=== PATIENT | female | born 1935 | race Caucasian/White ===

== ENCOUNTER 2016-09-24 20:47 | Emergency (ER) | payer MEDICARE ==
[2016-09-24 21:21] VITALS: BP 147/70
[2016-09-24] MEDS ORDERED: Acyclovir CAP* 200 MG PO ONE (22:31)
[2016-09-24] MEDS ORDERED: Tobramycin 0.3% OPHTH.SOL* 5 ML BOT (regular eye drops) RIGHT EYE ONE (22:33)
--- NOTE | 2016-10-04 09:11 | UC ---
Ramses Guzman Erika, scribed for Nicole Patrick DO on 09/24/16 at 2216 . Skin Complaint HPI - HPI Summary HPI Summary: Patient is an 81-year-old female presenting to [facility] with a CC of rash. Patient reports she has a dorsal root block scheduled for 09/28/2016, but will have to postpone the procedure if she has shingles so came here for evaluation. Rash is on the right side of the upper back, and it is pruritic. She does not note pain , but states she is taking hydrocodone and uses a fentanyl patch for her chronic neck pain. Patient also c/o blurred vision in the right eye. Patient reports that the eye began watering last night. She notes soreness rated a 3/10, and states photophobia. She denies fever, chills, nausea, vomiting, sore throat, ear ache, and headache. Hx right artificial cornea - patient reports she always has blurred vision, but it has significantly worsened in the past day. 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 FHx CAD, DM, HTN. Patient does not smoke. - History of Current Complaint Chief Complaint: UCRas Time Seen by Provider: 09/24/16 21:56 Stated Complaint: RASH ON SHOULDER,EYE IRRITATION Hx Obtained From: Patient, Family/Mold Worker - Daughter Onset/Duration: Lasting Days, Still Present Timing: Constant Onset Severity: Moderate Current Severity: Moderate Pain Intensity: 0 - rash Pain Scale Used: 0-10 Numeric Location: Discrete, Other - right back Character: Pruritus, Pain, Redness Aggravating: Nothing Alleviating: Nothing Associated Signs & Symptoms: Positive: Rash. Negative: Nausea, Vomiting, Diaphoresis, Difficulty Breathing, Fever, Chills, Cough, Chest Pain, Hoarseness , Throat Tightening, Abdominal Pain, Lightheadedness, Syncope - Allergy/Home Medications Allergies/Adverse Reactions: Allergies Allergy/AdvReac Type Severity Reaction Status Date / Time Ropinirole [From Requip] Allergy RASH, NOT Verified 09/09/16 10:19 SURE, MANY YRS AGO enviromental Allergy Mild Sneezing Uncoded 09/09/16 10:19 Review of Systems Constitutional: Negative Skin: Rash Eyes: Blurred Vision - R eye, Drainage - R eye, Photophobia - R eye ENT: Negative Respiratory: Negative Cardiovascular: Negative Gastrointestinal: Negative Genitourinary: Negative Motor: Negative Neurovascular: Negative Musculoskeletal: Negative Neurological: Negative Psychological: Negative All Other Systems Reviewed And Are Negative: Yes PMH/Surg Hx/FS Hx/Imm Hx Endocrine History Of: Denies: Diabetes Cardiovascular History Of: Denies: Hypertension, Pacemaker/ICD, Congestive Heart Failure Respiratory History Of: Reports: Asthma GI/ History Of: Denies: Renal Disease Cancer History Of: Denies: Breast Cancer - Surgical History Surgical History: Yes Surgery Procedure, Year, and Place: LT SHOULDER ROTATOR CUFF REPAIR, LT HIP REPLACEMENT, COMPLETE HYSTERECTOMY, APPY, 5 CORNEA TRANSPLANTS - Family History Known Family History: Positive: Cardiac Disease, Hypertension, Diabetes - Social History Occupation: Retired Alcohol Use: None Substance Use Type: None Smoking Status (MU): Never Smoked Tobacco Physical Exam Triage Information Reviewed: Yes Appearance: Well-Appearing, Well-Nourished, Pain Distress - Mild Vital Signs: Initial Vital Signs Temp 99.2 F 09/24/16 21:12 Pulse 73 09/24/16 21:12 Resp 18 09/24/16 21:12 BP 147/70 09/24/16 21:12 Pulse Ox 95 09/24/16 21:12 Vital Signs Reviewed: Yes Eyes: Positive: Other: - right eye is watery, conjunctival injection, cornea is clear, patient's pupil is abnormal at baseline due to "Crane procedure" on cornea. Patient's pupil and iris are abnormal at baseline. Per patient's daughter, though the eye is red, the iris and pupil look normal for patient. No ophthalmoplegia, no swelling of the eyeball ENT: Positive: Hearing grossly normal. Negative: Muffled/hoarse voice Neck: Positive: Other: - wearing a C collar Respiratory: Positive: Lungs clear, Normal breath sounds, No respiratory distress, No accessory muscle use Cardiovascular: Positive: RRR, No Murmur Musculoskeletal Exam: Normal Neurological: Positive: Alert, Muscle Tone Normal Psychological Exam: Normal Psychological: Positive: Age Appropriate Behavior Skin Exam: Other - warm, dry, normal color Skin: Positive: Other - excoriated lesions in a band-like distribution on the right side of the thoracic region, pruritic per patient Course/Dx - Differential Diagnoses - Skin Complaint Differential Diagnoses: Contact Dermatitis, Local Allergic Reaction, Scabies, Urticaria, Varicella Zoster - Diagnoses Provider Diagnoses: shingles, conjunctivitis Discharge - Discharge Plan Condition: Stable Disposition: HOME Prescriptions: ValACYclovir (*) [Valtrex (*)] 1 gm PO TID #20 tab Patient Education Materials: Shingles (ED), Conjunctivitis (ED) Referrals: Gabriele Mcgee MD [Primary Care Provider] - (FOLLOW UP 09/27/16) Kwasi Dos Santos MD [Medical Doctor] - (FOLLOW UP TOMORROW) Additional Instructions: VALTREX: VALTREX is used to treat infections caused by the Herpes family of viruses. It's available as capsules or ointment. VALTREX is most effective if started at the first sign of the viral outbreak. It can decrease the severity and duration of symptoms. However, it doesn't eliminate the virus from the body completely. If you're prone to repeated outbreaks of herpes, you'll continue to have attacks. Take the pills for the full recommended course. Occasionally, mild nausea or headaches may occur. Call the doctor if you develop wheezing, itching, rash, shortness of breath , or lightheadedness. The documentation as recorded by the Ramses wray Erika accurately reflects the service I personally performed and the decisions made by me, Nicole Patrick DO.
== END 2016-09-24 23:00 | disposition home or self-care (01) ==
LOC: UCEAST 20:47
DX: B02.9 Zoster without complications (principal); H10.9 Unspecified conjunctivitis
CPT/HCPCS: 99213; A9270-GY; G0463

== ENCOUNTER 2016-10-19 12:58 | Emergency (ER) | payer MEDICARE ==
[2016-10-19] MEDS ORDERED: NS 0.9% 1000 ML* 1,000 ML IV ONE ×2 (14:26→15:54)
[2016-10-19] MEDS ORDERED: Ondansetron INJ* 2 MG/ML VIAL IV ONE (14:26)
[2016-10-19 14:46] LABS: Hematocrit 43 % (35-47); Hemoglobin 13.9 g/dl (12.0-16.0); Mean Corpuscular HGB Conc 32 g/dl (31-36); Mean Corpuscular Hemoglobin 32 pg (27-31); Mean Corpuscular Volume 98 fL (80-97); Mean Platelet Volume 7 um3 (7.4-10.4); Red Blood Count 4.37 10^6/ul (4.0-5.4); Red Cell Distribution Width 14 % (10.5-15); White Blood Count 6.3 10^3/ul (3.5-10.8)
[2016-10-19 15:01] LABS: ALT 7 U/L (7-52); Alkaline Phosphatase 55 U/L (34-104); BUN/Creatinine Ratio 34.5 (8-20); Blood Urea Nitrogen 29 mg/dL (6-24); CO2 Carbon Dioxide 26 mmol/L (22-32); Calcium 8.9 mg/dL (8.6-10.3); Chloride 108 mmol/L (101-111); EGFR African American 83.7 (>60); EGFR Non-African American 65.1 (>60); Globulin 3.2 g/dL (2-4); Glucose 138 mg/dL (70-100); Magnesium 2.3 mg/dL (1.9-2.7); Sodium 139 mmol/L (133-145); Total Protein 7.2 g/dL (6.4-8.9)
[2016-10-19 15:20] LABS: TSH (Thyroid Stimulating Horm) 1.75 mcIU/mL (0.34-5.60)
[2016-10-19 15:27] LABS: AST 16 U/L (13-39); Anion Gap 5 mmol/L (2-11); Potassium 3.8 mmol/L (3.5-5.0)
[2016-10-19 19:21] VITALS: BP 118/90
[2016-10-20 13:19] LABS: Erythrocyte Sed Rate 10 mm/Hr (0-40)
[2016-10-20 13:47] LABS: C Reactive Protein < 1.00 mg/L (< 5.00)
--- NOTE | 2016-10-20 14:22 | ED ---
Lawrence Guzman Matthew, scribed for Donavon Rivas MD on 10/19/16 at 1544 . Complex/Multi-Sys Presentation - HPI Summary HPI Summary: An 81 y/o female presents to the ED with general weakness since 2 weeks ago. Associated symptoms include nausea, decreased appetite, recent weight loss, and fatigue. The patient's daughter called family medicine who recommended the patient present to the ED. She's only eating a small meal per day. Hx of shingles and a cyst in C1 and C2. She is taking hydrocodone and fentanyl patches. - History Of Current Complaint Chief Complaint: EDWeakness Time Seen by Provider: 10/19/16 13:51 Hx Obtained From: Patient Onset/Duration: Gradual Onset, Lasting Weeks, Still Present Timing: Constant Severity Currently: Moderate Severity Initially: Moderate Location: Negative Associated Signs And Symptoms: Positive: Weakness - general, Nausea, Decreased Oral Intake, Other - weight loss; fatigue - Allergies/Home Medications Allergies/Adverse Reactions: Allergies Allergy/AdvReac Type Severity Reaction Status Date / Time Ropinirole [From Requip] Allergy RASH, NOT Verified 09/09/16 10:19 SURE, MANY YRS AGO enviromental Allergy Mild Sneezing Uncoded 09/09/16 10:19 PMH/Surg Hx/FS Hx/Imm Hx Endocrine/Hematology History: Denies: Hx Diabetes, Hx Systemic Lupus Erythematosus Cardiovascular History: Denies: Hx Congestive Heart Failure, Hx Hypertension, Hx Pacemaker/ICD Respiratory History: Reports: Hx Asthma History: Denies: Hx Dialysis, Hx Renal Disease Musculoskeletal History: Denies: Hx Rheumatoid Arthritis Sensory History: Denies: Hx Hearing Aid Neurological History: Reports: Other Neuro Impairments/Disorders - PAIN CLINIC PATIENT Psychiatric History: Denies: Hx Panic Disorder - Cancer History Hx Chemotherapy: No Hx Radiation Therapy: No - Surgical History Surgery Procedure, Year, and Place: LT SHOULDER ROTATOR CUFF REPAIR, LT HIP REPLACEMENT, COMPLETE HYSTERECTOMY, APPY, 5 CORNEA TRANSPLANTS Infectious Disease History: Denies: History Other Infectious Disease, Traveled Outside the [place] in Last 30 Days - Family History Known Family History: Positive: Cardiac Disease, Hypertension, Diabetes, Other - NONCONTIBUTORY - Social History Alcohol Use: None Substance Use Type: Reports: None Smoking Status (MU): Never Smoked Tobacco Review of Systems Constitutional: Other - decreased appetite, recent weight loss Positive: Fatigue Eyes: Negative ENT: Negative Cardiovascular: Negative Respiratory: Negative Positive: Nausea Genitourinary: Negative Musculoskeletal: Negative Skin: Negative Positive: Weakness - general Psychological: Normal All Other Systems Reviewed And Are Negative: Yes Physical Exam Triage Information Reviewed: Yes Vital Signs On Initial Exam: Initial Vitals Temp Pulse Resp BP Pulse Ox 97.9 F 73 18 143/66 98 10/19/16 13:01 10/19/16 13:01 10/19/16 13:01 10/19/16 13:01 10/19/16 13:01 Vital Signs Reviewed: Yes Appearance: Positive: Pain Distress - mild Skin: Positive: Other - tense skin Head/Face: Positive: Normal Head/Face Inspection Eyes: Positive: Normal ENT: Positive: Other - Dry mucous membranes Neck: Positive: Supple, Nontender Respiratory/Lung Sounds: Positive: Clear to Auscultation, Breath Sounds Present Cardiovascular: Positive: RRR Abdomen Description: Positive: Nontender, Soft Bowel Sounds: Positive: Present Musculoskeletal: Positive: Strength/ROM Intact Neurological: Positive: Alert, Oriented to Person Place, Time Psychiatric: Positive: Affect/Mood Appropriate - [place] Coma Scale Coma Scale Total: 15 Diagnostics - Vital Signs Vital Signs Temp Pulse Resp BP Pulse Ox 10/19/16 14:08 97.9 F 67 20 136/58 92 10/19/16 13:01 97.9 F 73 18 143/66 98 - Laboratory Lab Results: Lab Results 10/19/16 10/19/16 10/19/16 Range/Units 14:35 14:35 14:35 WBC 6.3 (3.5-10.8) 10^3/ul RBC 4.37 (4.0-5.4) 10^6/ul Hgb 13.9 (12.0-16.0) g/dl Hct 43 (35-47) % MCV 98 H (80-97) fL MCH 32 H (27-31) pg MCHC 32 (31-36) g/dl RDW 14 (10.5-15) % Plt Count 453 H (150-450) 10^3/ul MPV 7 L (7.4-10.4) um3 Neut % (Auto) 53.9 (38-83) % Lymph % (Auto) 33.6 (25-47) % Cameron % (Auto) 9.6 H (1-9) % Eos % (Auto) 1.7 (0-6) % Baso % (Auto) 1.2 (0-2) % Absolute Neuts (auto) 3.4 (1.5-7.7) 10^3/ul Absolute Lymphs (auto) 2.1 (1.0-4.8) 10^3/ul Absolute Monos (auto) 0.6 (0-0.8) 10^3/ul Absolute Eos (auto) 0.1 (0-0.6) 10^3/ul Absolute Basos (auto) 0.1 (0-0.2) 10^3/ul Absolute Nucleated RBC 0.01 10^3/ul Nucleated RBC % 0.1 Sodium 139 (133-145) mmol/L Potassium 3.8 (3.5-5.0) mmol/L Chloride 108 (101-111) mmol/L Carbon Dioxide 26 (22-32) mmol/L Anion Gap 5 (2-11) mmol/L BUN 29 H (6-24) mg/dL Creatinine 0.84 (0.51-0.95) mg/dL Est GFR ( Amer) 83.7 (>60) Est GFR (Non-Af Amer) 65.1 (>60) BUN/Creatinine Ratio 34.5 H (8-20) Glucose 138 H (70-100) mg/dL Lactic Acid 1.6 (0.5-2.0) mmol/L Calcium 8.9 (8.6-10.3) mg/dL Magnesium 2.3 (1.9-2.7) mg/dL Total Bilirubin 0.30 (0.2-1.0) mg/dL AST 16 (13-39) U/L ALT 7 (7-52) U/L Alkaline Phosphatase 55 (34-104) U/L Troponin I 0.00 (<0.04) ng/mL Total Protein 7.2 (6.4-8.9) g/dL Albumin 4.0 (3.2-5.2) g/dL Globulin 3.2 (2-4) g/dL Albumin/Globulin Ratio 1.3 (1-3) TSH 1.75 (0.34-5.60) mcIU/mL Result Diagrams: 10/19/16 14:35 10/19/16 14:35 Lab Statement: Any lab studies that have been ordered have been reviewed, and results considered in the medical decision making process. - EKG 13:08 Cardiac Rate: NL - 66 bpm EKG Rhythm: Sinus Rhythm EKG Interpretation: No STEMI Complex Multi-Symp Course/Dx Course Of Treatment: Ms Mina has been having a rough time of it recently. She has been having problems with her right eye and underwent surgery recently which helped some but she has had a lot of pain in the eye and on the right side of her head. Tegretol has been started a week or so ago at 200mg BID. She is also on a narcotic for neck pain for which she is scheduled to have injections. Because of the pain, she has been nauseated and not eating or drinking well.Her W/U here was OK and she improved a lot with IV fluids and she and her daughter were willing to try increasing her tegretol to 300 BID and going home. - Diagnoses Provider Diagnoses: Chronic pain, Dehydration Discharge - Discharge Plan Condition: Stable Disposition: HOME Patient Education Materials: Dehydration (ED) Referrals: Gabriele Mcgee MD [Primary Care Provider] - Additional Instructions: Please increase dosage of Tegretol to 300mg twice daily. Please follow-up with your primary care physician in 2-3 days. The documentation as recorded by the Lawrence wray Matthew accurately reflects the service I personally performed and the decisions made by me, Donavon Rivas MD.
== END 2016-10-19 19:22 | disposition home or self-care (01) ==
LOC: ED 12:58
DX: E86.0 Dehydration (principal); G89.29 Other chronic pain; R53.1 Weakness; R11.0 Nausea; R53.83 Other fatigue
CPT/HCPCS: 36415; 80053; 83605; 83735; 84443; 84484; 85025; 85652; 86140; 93005; 96374; 99283; J2405

== ENCOUNTER 2016-10-25 11:43 | Observation (INO) | payer MEDICARE ==
[2016-10-25] MEDS ORDERED: Acetaminophen TAB* 325 MG PO PRN (12:31)
[2016-10-25] MEDS ORDERED: Morphine INJ* 2 MG/ML 1 ML SYRINGE IV PRN (12:31)
[2016-10-25] MEDS ORDERED: Ondansetron INJ* 2 MG/ML VIAL IV PRN (12:31)
[2016-10-25 13:11] LABS: Hematocrit 41 % (35-47); Hemoglobin 13.5 g/dl (12.0-16.0); Mean Corpuscular HGB Conc 33 g/dl (31-36); Mean Corpuscular Hemoglobin 32 pg (27-31); Mean Corpuscular Volume 97 fL (80-97); Mean Platelet Volume 8 um3 (7.4-10.4); Red Blood Count 4.22 10^6/ul (4.0-5.4); Red Cell Distribution Width 14 % (10.5-15); White Blood Count 9.2 10^3/ul (3.5-10.8)
[2016-10-25 13:27] LABS: Albumin 3.9 g/dL (3.2-5.2); BUN/Creatinine Ratio 33.7 (8-20); EGFR African American 84.9 (>60); Globulin 3.1 g/dL (2-4); Potassium 3.5 mmol/L (3.5-5.0); Total Bilirubin 0.3 mg/dL (0.2-1.0)
[2016-10-25] MEDS ORDERED: fentaNYL PATCH 12 MCG/HR TRANSDERM SCH (14:00)
[2016-10-25] MEDS: NS 0.9% 1000 ML* 1,000 ML IV SCH ×2 (14:16→22:09)
[2016-10-25] MEDS: Heparin VIAL(*) 5000 UNITS/ML VIAL (FIVE THOUSAND) SUBCUT SCH ×2 (15:50→22:12)
[2016-10-25] MEDS: HYDROcodone/ACETAMIN 5-325 MG* 1 TAB PO SCH ×2 (15:55→22:23)
[2016-10-25] MEDS: Sucralfate TAB* 1 GM PO SCH (17:15)
[2016-10-25] MEDS: OFLOXACIN 0.3% RIGHT EYE SCH ×2 (17:16→22:10)
[2016-10-25 19:46] LABS: Carbamazepine 5.9 mcg/mL (4.0-12.0)
--- NOTE | 2016-10-25 20:12 | PN ---
Progress Note - Progress Note Note: Called by patient's RN that patient reported floaters in her right eye that were new. She states that these started today and are very large, "like a spaceship." She denies pain to the eye or other complaint. Patient's daughter had spoken with in [place] who follows her for her ongoing complex R eye complaints to cancel a previously scheduled appointment for tomorrow and reported to him these new floaters. MD asked that patient be seen tonight by opthamologist as he is worried about retinal detachment. Spoke with Dr. Soto who will exam patient tonight.
[2016-10-25] MEDS ORDERED: Latanoprost 0.005%* 2.5 ml BTL RIGHT EYE SCH (21:00)
--- NOTE | 2016-10-25 21:43 | PN ---
Progress Note - Progress Note Note: Ophthalmology progress note CC: spots in right eye HPI: 81yo female with complex medical and ocular hx currently admitted for deterioration in health and ftt. she noticed flashes of light and spots in her vision today. 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 daughter reports her pain is actually improved today. 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 ppv recently for vitreous haze and tap and inject 10/15/16 od. VA: od 20/200 cc. os 20/50 cc iop: soft TP ou pupils: fixed od, reactive os. eoms: full ou anterior segment: LL wnl ou. conj with limbal flush od, w/q os. bcl od with boston k pro. pkp os. cataract os. fundus exam od: macula flat, nerve sharp, mild pallor, shallow cup. peripheral exam: retina flat to best view through k-pro with 28D lens. few vitreous floaters but grossly clear od. A/P: 1: floaters right eye: -stable retinal exam. I spoke with Dr. Cox and her daughter. her vision is improved from previous and her pain too is improved. her recent surgeries does place her at increased risk for retinal pathology but there are no apparent retinal tear/detachment today. her daughter reports a follow up ophthalmology appointment on 11/03/16. She should keep this appointment. please call if there are any further changes in her vision 2: enophthalmitis right eye -exam improving based on chart review and with discussion with Dr. Cox. -plan to continue current eye drops -follow up: as scheduled for her out patient appointments. -ophthalmology will sign off. please call for any future questions. Taj Soto MD
--- NOTE | 2016-10-25 22:00 | HP ---
HISTORY AND PHYSICAL:* ADDENDUM: DATE OF ADMISSION: 10/25/16 Josefa Mina is an 81-year-old female with history of and chronic neck osteoarthritis who had had problems with her eye in the past several days and had problems with constant nausea and inability to eat. Dr. Mcgee sent the patient from his office for drugs administration for dehydration. The patient is going to be placed on overnight observation. We will also review the patient 's medication list. Treat her for possibility of gastritis with proton pump inhibitor and Carafate. For further details of the patient's presentation and plan, please see history and physical dictated by Sania Bey, on 10/25/16 with which I agree. [id number]/[facility] #: [id number] MTDD
[2016-10-25] MEDS: VANCOMYCIN RIGHT EYE SCH (22:06)
[2016-10-25] MEDS: ACETAZOLAMIDE 500 MG PO SCH (22:27)
[2016-10-25] MEDS: Timolol 0.5% OPTH.SOL* BTL RIGHT EYE SCH (22:29)
[2016-10-25] MEDS: prednisoLONE 1% OPHTH.SUSP* 5 ML OPHTH.SUSP RIGHT EYE SCH (22:31)
[2016-10-25] MEDS: Nabumetone TAB* 500 MG PO SCH (22:33)
[2016-10-25] MEDS: carBAMazepine TAB(*) 200 MG PO SCH (22:34)
--- NOTE | 2016-10-25 22:51 | HP ---
ATTENDING PHYSICIAN'S ADDENDUM NOW INCLUDED ON THIS REPORT HOSPITAL MEDICINE HISTORY AND PHYSICAL: DATE OF ADMISSION: 10/25/16 PRIMARY CARE PHYSICIAN: Dr. Mcgee. ATTENDING PHYSICIAN: Anna Harper MD *(dictation provided by Sania Bey NP). CHIEF COMPLAINT: Nausea, weakness and poor appetite with intermittent right eye and neck pain. HISTORY OF PRESENT ILLNESS: Ms. Mina is an 81-year-old female with a past medical history of osteoarthritis, neck pain secondary to degenerative disease and recent right eye hemorrhage and infection, treated at [facility], who presents to the hospital today with concern for nausea, poor appetite and generalized weakness. Ms. Mina's daughter is at the bedside and she provides most of the history of present illness but this is all corroborated by the patient as well. Per the report, the patient developed neck pain late in the fall after a fall at home. She was seen in consultation by Dr. Umanzor here in [place] and ultimately it is suspected that her symptoms are related to degenerative disease with plan for dorsal root injection in [place] at the pain clinic there. However, the patient developed shingles and thereafter she had a hemorrhage to her right eye. She has been followed closely in [place] by Dr. Cox and his team for ongoing problems with her right eye. She has had severe intermittent pain. She had evacuation of hemorrhage and then there was concern that she had keratitis, vitritis and endophthalmitis. Her last visit there was on 10/19/16. There was no evidence of infection at that time. She has been placed on Tegretol for pain in the eye and Diamox as well. At least as of today , the patient has no further pain in her right eye. She had had some loss of vision and she feels that her vision is returning as well. In addition to this ongoing issue with pain in her eye since [facility], the patient has had this ongoing neck pain since the fall. Now that her eye pain is better, she feels that the neck pain is quite intense. She is also now complaining of nausea which is causing her to have a very poor appetite. The patient's daughter reports that she is eating about one meal per day. After she eats, she has nausea. There is no abdominal pain. She has had diarrhea the past couple of days but no more than 4 to 5 episodes. There is no vomiting, no abdominal pain. The patient was seen in the emergency room on 10/19/16 for concern of generalized weakness, nausea and poor appetite. At that time, she was given IV fluids and felt better. However, in the intervening days, she has again felt weak and nauseated and continues to have poor appetite. She saw Dr. Mcgee at his office today and he was concerned that she was significantly dehydrated and therefore had her sent to the hospital. The patient's labs today showed no leukocytosis. Her BUN and creatinine are normal. Electrolytes are normal. Vital signs are stable. PAST MEDICAL HISTORY: 1. Osteoarthritis. 2. Asthma. 3. Cervical degenerative disk disease with plan for dorsal root injection in [place] when the patient is stable. 4. History of right eye pain with hemorrhage and possible endophthalmitis. 5. History of hip replacement. 6. History of rotator cuff injury. MEDICATIONS: 1. Acetazolamide 500 mg p.o. b.i.d. 2. Estradiol 0.3 mg p.o. daily. 3. Hydrocodone and acetaminophen 5/325 mg 1 tab p.o. q. 8 hours. 4. Latanoprost 0.005% one drop right eye at bedtime. 5. Nabumetone 500 mg p.o. b.i.d. 6. Ofloxacin 0.3% two drops right eye q.i.d. 7. Timolol 0.5% one drop right eye b.i.d. 8. Fentanyl patch 12 mcg q. 72 hours. 9. Prednisolone 1% one drop right eye b.i.d. 10. Tegretol 300 mg p.o. b.i.d. 11. Vancomycin eye drops. ALLERGIES: ROPINIROLE. FAMILY HISTORY: The patient's mother with stroke and diabetes. Father also had diabetes but related to a brain infection. REVIEW OF SYSTEMS: A 14-point review of systems was completed with Ms. Mina and all those mentioned above are negative. PHYSICAL EXAMINATION GENERAL: Ms. Mina is sitting up in the bed. She has eaten her lunch and is now beginning to complain of some nausea and she is in no acute distress. VITAL SIGNS: Temperature of 97.3, pulse rate 64, respiratory rate 18, O2 saturation 100% on room air. Blood pressure 147/72. LUNGS: Clear to auscultation bilaterally with no accessory muscle use and good aeration. HEART: S1, S2. No murmur, rub or gallop. ABDOMEN: Soft and nontender with bowel sounds are positive x4. EXTREMITIES: No cyanosis or edema. SKIN: Intact. NEUROLOGIC: She is alert, she is oriented x3. She moves all extremities equally. There is no facial asymmetry or focal weakness. Note is made that the patient has a KPro in her right eye as well as keratoconus as noted in the documentation from Dr. Cox's office. Left eye, pupil is equal and reactive. LABORATORY DATA: WBC 9.2, hemoglobin 13.5, hematocrit 41, platelet count of 286. Sodium 138, potassium 3.5, chloride 108, serum bicarbonate 23, BUN 28, creatinine 0.83, glucose 105. ASSESSMENT: Ms. Mina is an 81-year-old female who has been feeling unwell for the past several months related to degenerative disk disease in her neck, causing severe neck pain as well as episode of shingles and now ongoing problems with right eye hemorrhage and infection since . She presents to the hospital today from Dr. Mcgee's office with concern for generalized weakness and nausea and poor appetite. Her plans are for observation in the hospital for the followin. Nausea. It appears the patient's main complaint today is nausea. She states her eye pain is resolved and that her neck pain feels reasonably controlled up to this point on hydrocodone and fentanyl. I question whether the nausea is related to medications. She is on Diamox which can cause nausea as well as Tegretol. I also wonder if perhaps she has stress ulcerations after this prolonged illness and pain and plan to add omeprazole and sucralfate as well as Zofran p.r.n. The patient is not overtly dehydrated based on laboratory values but plan to provide intravenous fluids based on her poor appetite. 2. Right eye pain with endophthalmitis. Plan to continue all medications as prescribed by Dr. Cox. The patient will be following up with Dr. Cox per routine. 3. Neck pain. Plan to continue current regimen and add on as needed. At this point, she is comfortable. 4. DVT prophylaxis with heparin subcu. DISPOSITION: Medical floor. CODE STATUS: Full code. TIME SPENT: Approximately 60 minutes was spent on admission of this patient; more than half the time was spent with the patient at the bedside reviewing the events leading up to this hospitalization, performing physical examination, and reviewing our plan of care. SANIA BEY NP ADDENDUM: DATE OF ADMISSION: 10/25/16 Josefa Mina is an 81-year-old female with history of and chronic neck osteoarthritis who had had problems with her eye in the past several days and had problems with constant nausea and inability to eat. Dr. Mcgee sent the patient from his office for drugs administration for dehydration. The patient is going to be placed on overnight observation. We will also review the patient 's medication list. Treat her for possibility of gastritis with proton pump inhibitor and Carafate. For further details of the patient's presentation and plan, please see history and physical dictated by Sania Bey, on 10/25/16 with which I agree. ANNA HARPER MD CC: Dr. Mcgee* [id number]/[facility] #: [id number] [id number]/[facility] #: [id number] JOEL
[2016-10-26] MEDS ORDERED: Omeprazole CAP* 20 MG PO SCH (06:00)
[2016-10-26] MEDS: NS 0.9% 1000 ML* 1,000 ML IV SCH (06:01)
[2016-10-26] MEDS: HYDROcodone/ACETAMIN 5-325 MG* 1 TAB PO SCH (06:02)
[2016-10-26] MEDS: Heparin VIAL(*) 5000 UNITS/ML VIAL (FIVE THOUSAND) SUBCUT SCH (06:03)
[2016-10-26 07:46] VITALS: BP 109/48
[2016-10-26] MEDS: Sucralfate TAB* 1 GM PO SCH (07:56)
[2016-10-26] MEDS ORDERED: ESTRADIOL 0.5 MG PO SCH (09:00)
--- NOTE | 2016-10-26 09:53 | PN ---
Subjective Date of Service: 10/26/16 Interval History: Patient seen and examined at bedside. She does not endorse any new complaints. She denies any new floaters or flashes of light. She feels better after receiving fluids and was able to eat her breakfast this AM. Family History: Unchanged from Admission Social History: Unchanged from Admission Past Medical History: Unchanged from Admission Objective Active Medications: Acetaminophen (Tylenol Tab*) 650 mg PO Q4H PRN PRN Reason: FEVER/PAIN Hydrocodone Bitart/Acetaminophen (Frank[place] 5-325 Tab*) 1 tab PO Q8HR [facility] Last Admin: 10/26/16 06:02 Dose: 1 tab Carbamazepine (Tegretol Tab(*)) 300 mg PO BID [facility] Last Admin: 10/25/16 22:34 Dose: 400 mg Estradiol (Estradiol (Nf)) 0.5 mg PO DAILY [facility] Fentanyl (Duragesic Patch 12 Mcg/Hr *) 12 mcg TRANSDERM Q72H [facility] Last Admin: 10/25/16 15:50 Dose: 12 mcg Heparin Sodium (Porcine) (Heparin Vial(*)) 5,000 units SUBCUT Q8HR [facility] Last Admin: 10/26/16 06:03 Dose: 5,000 units Sodium Chloride (Ns 0.9% 1000 Ml*) 1,000 mls @ 125 mls/hr IV PER RATE [facility] Last Admin: 10/26/16 06:01 Dose: 125 mls/hr Latanoprost (Xalatan 0.005%*) 1 drop RIGHT EYE BEDTIME [facility] Last Admin: 10/25/16 22:21 Dose: 1 drop Morphine Sulfate (Morphine Inj (Syringe)*) 2 mg IV Q4H PRN PRN Reason: PAIN Nabumetone (Relafen Tab*) 500 mg PO BID [facility] Last Admin: 10/25/16 22:33 Dose: 500 mg Pto: Acetazolamide (Er 500 Mg Cap) 1 cap PO BID [facility] Last Admin: 10/25/16 22:27 Dose: 1 cap Pto: Vancomycin (Fortified Eye Drops) 1 dose RIGHT EYE BID [facility] Last Admin: 10/25/16 22:06 Dose: 1 dose Ofloxacin (Ocuflox Opth 0.3%(Nf)) 1 drop RIGHT EYE QID [facility] Last Admin: 10/25/16 22:10 Dose: 1 drop Omeprazole (Prilosec Cap*) 20 mg PO 0600 [facility] Last Admin: 10/26/16 06:02 Dose: 20 mg Ondansetron HCl (Zofran Inj*) 4 mg IV Q4H PRN PRN Reason: NAUSEA/VOMITING Prednisolone Acetate (Pred Forte 1%*) 1 drop RIGHT EYE BID [facility] Last Admin: 10/25/16 22:31 Dose: 1 drop Sucralfate (Carafate*) 1 gm PO AC [facility] Last Admin: 10/26/16 07:56 Dose: 1 gm Timolol Maleate (Timoptic 0.5% Opth*) 1 drop RIGHT EYE BID [facility] Last Admin: 10/25/16 22:29 Dose: 1 drop Vital Signs 10/25/16 10/25/16 10/25/16 12:28 15:50 15:55 Temperature 97.3 F Pulse Rate 64 Respiratory 18 16 16 Rate Blood Pressure 147/72 (mmHg) O2 Sat by Pulse 100 Oximetry 10/25/16 10/25/16 10/25/16 17:55 19:38 20:00 Temperature 98.0 F Pulse Rate 56 Respiratory 16 16 16 Rate Blood Pressure 119/48 (mmHg) O2 Sat by Pulse 97 Oximetry 10/25/16 10/25/16 10/26/16 22:23 23:23 00:23 Temperature 97.7 F Pulse Rate 56 Respiratory 20 16 16 Rate Blood Pressure 137/61 (mmHg) O2 Sat by Pulse 97 Oximetry 10/26/16 10/26/16 10/26/16 03:41 06:02 07:45 Temperature 97.9 F 97.9 F Pulse Rate 63 57 Respiratory 16 16 14 Rate Blood Pressure 113/64 109/48 (mmHg) O2 Sat by Pulse 95 96 Oximetry Oxygen Devices in Use Now: None Appearance: Elderly female, sitting on edge of bed, NAD Eyes: No Scleral Icterus, - - left eye pupil is reactive, Kpro and 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 Mina is an 81 yo female with a PMH of cervical DDD, OA, asthma, right eye pain with hemorrhage and possible endophthalmitis who presented to the ED on 10/25/16 with nausea as well as intermittent neck pain and right eye pain and complications. - Patient Problems (1) Nausea Code(s): R11.0 - NAUSEA Comment: Patient reports improvement in nausea and symptoms with hydration. Able to tolerate PO intake. Discussed the possibility of gastritis with patient. She does not wish to continue on omeprazole or sucralfate at this time. Has not required ondansetron. Continue outpatient f/u with PCP. (2) Pain of right eye Code(s): H57.11 - OCULAR PAIN, RIGHT EYE Comment: With endophthalmitis. Appreciate ophthalmology consult. No retinal detachment or tears noted. Continue eye gtts Continue outpatient f/u with Dr. Cox. (3) Degenerative disc disease, cervical Code(s): M50.30 - OTHER CERVICAL DISC DEGENERATION, UNSP CERVICAL REGION Comment: Stable, no increased pain. Patient wearing cervical collar. Outpatient follow-up in [place] as previously scheduled. (4) DVT prophylaxis Code(s): [id number] - Comment: SQ heparin Status and Disposition: OBV admit. D/c to home.
[2016-10-26] MEDS: carBAMazepine TAB(*) 200 MG PO SCH (09:55)
[2016-10-26] MEDS: ACETAZOLAMIDE 500 MG PO SCH (09:55)
[2016-10-26] MEDS: prednisoLONE 1% OPHTH.SUSP* 5 ML OPHTH.SUSP RIGHT EYE SCH (09:56)
[2016-10-26] MEDS: Nabumetone TAB* 500 MG PO SCH (09:56)
[2016-10-26] MEDS: Timolol 0.5% OPTH.SOL* BTL RIGHT EYE SCH (09:57)
[2016-10-26] MEDS: OFLOXACIN 0.3% RIGHT EYE SCH (09:57)
[2016-10-26] MEDS: VANCOMYCIN RIGHT EYE SCH (10:09)
--- NOTE | 2016-10-27 06:45 | DS ---
MEDICINE DISCHARGE SUMMARY: DATE OF ADMISSION: 10/25/16 DATE OF DISCHARGE: 10/26/16 PRIMARY CARE PROVIDER: Dr. Gabriele Mcgee. PROVIDER: Ondina Beatty NP ATTENDING PHYSICIAN: Dr. Neo Saunders *(as dictated by Ondina Beatty NP). PRIMARY DISCHARGE DIAGNOSES: 1. Nausea. 2. Question of possible gastritis. 3. Dehydration. 4. Right eye pain. SECONDARY DISCHARGE DIAGNOSES: 1. Osteoarthritis. 2. Asthma. 3. Cervical degenerative disk disease. 4. History of right eye pain with hemorrhage and possible endophthalmitis. 5. Recent shingles. MEDICATIONS AT DISCHARGE: 1. Latanoprost 0.005% eye drops, 1 drop to right eye at bedtime. 2. Ofloxacin 0.3% one drop to right eye four times a day. 3. Panther 5/325 one tab q.8 hours p.r.n. 4. Acetazolamide ER 1 capsule b.i.d. 5. Timolol 0.5% ophthalmic solution 1 drop to right eye b.i.d. 6. Prednisolone eye drops, 1 drop to right eye b.i.d. 7. Estradiol 0.3 mg daily. 8. Nabumetone 500 mg b.i.d. 9. Fentanyl patch 12 mcg an hour, change every 72 hours. 10. Tegretol 300 mg b.i.d. 11. Omeprazole 20 mg daily. This is a new medication. HOSPITAL COURSE OF STAY: For full details, please refer to the H and P provided by Sania Bey NP, on 10/25/16. In summary, Ms. Mina is an 81-year- old female, who was sent to the ER due to concern for nausea, poor appetite, and generalized weakness. Ms. Mina's daughter provided some of the history as well and reportedly was concerned for increasing weakness in her mother. They were previously seen by Dr. Mcgee earlier on 10/25/16, who was concerned for significant dehydration and weakness. Here, in the ER, the patient's lab showed no leukocytosis, normal renal function, electrolytes, and stable vital signs. The patient was admitted on observation status and hydrated with IV fluids. The patient also had concern expressed for intermittent neck pain as well as right eye pain. The patient also reported some floaters to the right eye and flashes of light. The patient did state that her neck pain was at baseline and denied any increase in pain. She was continued on her current regimen. In regards to the eye complaints, Dr. Soto, of Ophthalmology, came to see the patient and evaluated. He noted that there was a stable retinal exam and did speak with Dr. Cox, the patient's regular financial analysis consultant. He did not see any apparent retinal tears or detachments as of 10/25/16, but encouraged the patient to keep her previously scheduled appointment on November 03. No changes made to her eye drops. The patient was hydrated overnight and the following morning was able to tolerate breakfast, she also was able to eat most of her dinner. She denied any nausea during her stay here. She did not require any antiemetics. Given her medications and adverse side effect profile, we did discuss the possibility of potentially having some stress ulcerations from her chronic illnesses and prolonged illnesses and the possibility of having a mild gastritis. The patient was started on Carafate and omeprazole upon admission, which she did continue. I did discuss that the patient may likely benefit from continuing omeprazole and/or the Carafate. The patient stated that she did not want to continue any new medications and felt fine. She repeatedly requested to go home. However, the patient's daughter called and expressed concern over her mother coming home stating that she was unsafe at home and was unable to climb stairs and has been complaining of weakness and nausea for quite some time. We did discuss the patient is requesting to go home and states that she is feeling much better and has failed to demonstrate adequate p.o. intake. However, it did seem reasonable to obtain a Physical Therapy consult for the patient. The patient was ambulated around the unit as well as on the stairs. The patient's physical therapist noted that the patient has a slow steady gait with no device. The patient was advised that she could use a walker or a cane or some sort to assist her if she felt it as necessary. I did not find acute PT needs. She also noted the patient was able to ascend and descend the stairs safely. Given these findings and the patient's request and reported improvement, the patient was discharged home with a recommendation to follow up with Dr. Mcgee within next 4 to 7 days. She is also advised to keep her appointments up in [place] with her financial analysis consultant and with the [facility], who is treating her cervical degenerative disk disease. CONCERNS AT DISCHARGE: Ms. Mina was discharged to home on 10/26/16 under the care of her and daughter. She is to follow up with her PCP, financial analysis consultant, and the Pain Clinic in [place]. DIET: May resume regular diet. The patient is advised to avoid spicy and acidic foods and advance diet as tolerated. She was also advised to perhaps try small meals throughout the day as opposed to very large meals and to take her medications with food in order to prevent nausea as a side effect. ACTIVITY: As tolerated. CONDITION: Improved, stable. DISPOSITION: To home. TIME SPENT: On this discharge was approximately 45 minutes. Again, this is only a brief summary of the patient's hospital course of stay. For full details, please refer to the full medical record. If you have any further questions or need further assistance, please feel free to contact me at . ONDINA BEATTY NP CC: Dr. Gabriele Mcgee * [id number]/CPS #: [id number] JOEL
== END 2016-10-26 11:35 | disposition home or self-care (01) ==
LOC: MED 12:05
PROVIDERS: ADMIT Internal Medicine; ATTEND Hospitalist
DX: R11.0 Nausea (principal); E86.0 Dehydration; H57.11 Ocular pain, right eye; J45.909 Unspecified asthma, uncomplicated; M19.90 Unspecified osteoarthritis, unspecified site; M50.30 Other cervical disc degeneration, unspecified cervical region; R53.1 Weakness; H43.391 Other vitreous opacities, right eye; H44.001 Unspecified purulent endophthalmitis, right eye; R62.7 Adult failure to thrive; M06.89 Other specified rheumatoid arthritis, multiple sites; H18.601 Keratoconus, unspecified, right eye; M54.81 Occipital neuralgia
CPT/HCPCS: 36415; 80053; 80156; 85025; 96360; 96361; 96372; A9270-GY; G0378; G8978-GP-CI; G8979-GP-CI; G8980-GP-CI; J1644

== ENCOUNTER 2018-05-21 11:22 | Inpatient (IN) | payer MEDICARE ==
--- OUTSIDE RECORDS SUMMARY | 2018-05-21 11:33 | XMS REPORT | Continuity of Care Document ---
:1935 External Reference #:[id number] Author Name AliyahRay dunn Care Team Providers Name Role Phone Gabriele Mcgee MD Primary Care Physician Unavailable Payers Type Date Identification Numbers Payment Provider Subscriber Effective: 2000 Policy Number: [id number] Medicare Josefa Mina PayID: [id number] [address] [place] [address] Policy Number: [id number] [facility] Josefa Mina PayID: [id number] [address] [place] [address] Advance Directives Description No Information Available Problems Date Description Provider Status Onset: 04/12/2018 Localized, primary osteoarthritis of Malcolm Reyes M.D. Active the wrist Onset: 02/28/2018 Stress fracture of metatarsal bone Jb Pichardo MD Active Onset: 02/28/2018 Plantar fascial fibromatosis Jb Pichardo MD Active Onset: 07/16/2016 Neck pain Freddie Umanzor M.D. Active Family History Date Family Member(s) Problem(s) Comments General Diabetes General Heart Disease General Hypertension General Stroke General Cancer General Rheumatoid Arthritis Social History Type Date Description Comments Sex Unknown Lives With Occupation Currently Working helps run a daycare ETOH Use Denies alcohol use Tobacco Use Start: Unknown Patient has never smoked Recreational Drug Use Denies Drug Use Smoking Status Reviewed: 05/15/18 Patient has never smoked Exercise Type/Frequency Exercises regularly Allergies, Adverse Reactions, Alerts Date Description Reaction Status Severity Comments 07/16/2016 Requip Active 07/16/2016 Muscle Relaxer cant remember name of rx Active 11/01/2016 Fentanyl Active per daughter 03/18/2016 NKDA Inactive Medications Medication Date Status Form Strength Qnty SIG Indications Ordering Provider Diclofenac Sodium 04/12/ Active Gel 1% 300gm apply 3 M19.032 Malcolm 2017 gr to Amy, left M.D. wrist twice a day as needed Estradiol / Active 5mg qd Unknown 0000 Nabumetone / Active 500mg 1 by Unknown 0000 mouth twice a day Benadryl Allergy / Active Unknown 0000 Percocet 08/04/ Hx Tablets 7.5-325mg 90tabs 1 by M54.2 Freddie 2017 - mouth [place], 02/27/ every 6 M.D. 2018 hours as needed pain Hydrocodone-Acetam / Hx Unknown inophen 0000 - 2016 Amoxicillin / Hx Tablets 875mg 1 by Unknown 0000 - mouth 07/16/ twice a 2016 day Cyclobenzaprine / Hx Tablets 5mg take one Unknown HCL 0000 - tablet 02/27/ by mouth 2017 every 8 hours prn. may take a second tablet if first not effectiv e. Hydrocodone-Acetam / Hx Tablets 5-325mg 1 by Unknown inophen 0000 - mouth 02/27/ every 2017 4-6 hours prn. Oxycodone HCL / Hx Unknown 0000 - 2017 Immunizations Description No Information Available Vital Signs Date Vital Result Comment 05/15/2018 1:38pm Height 64 inches 5'4" Heart Rate 72 /min BP Systolic Sitting 124 mmHg BP Diastolic Sitting 92 mmHg Body Temperature 98.0 F Pain Level 0 04/12/2018 10:31am Height 64 inches 5'4" Weight 137.00 lb BP Systolic 126 mmHg BP Diastolic 62 mmHg Respiratory Rate 20 /min Pain Level 6 BMI (Body Mass Index) 23.5 kg/m2 04/03/2018 1:23pm Height 64 inches 5'4" Weight 137.00 lb Heart Rate 68 /min Respiratory Rate 15 /min Body Temperature 97.6 F Pain Level 2 BMI (Body Mass Index) 23.5 kg/m2 03/21/2018 8:21am Height 64 inches 5'4" Weight 137.00 lb Heart Rate 68 /min Respiratory Rate 15 /min Body Temperature 95.9 F Pain Level 0 BMI (Body Mass Index) 23.5 kg/m2 02/28/2018 11:19am Height 64 inches 5'4" Weight 137.00 lb Heart Rate 70 /min Respiratory Rate 16 /min BMI (Body Mass Index) 23.5 kg/m2 08/04/2016 1:18pm Height 64.25 inches 5'4.25" Weight 138.00 lb Heart Rate 70 /min BP Systolic Sitting 156 mmHg BP Diastolic Sitting 98 mmHg Pain Level 8 BMI (Body Mass Index) 23.5 kg/m2 07/16/2016 11:17am Height 64.25 inches 5'4.25" Weight 138.00 lb Heart Rate 72 /min BP Systolic Sitting 122 mmHg BP Diastolic Sitting 80 mmHg Pain Level 8 BMI (Body Mass Index) 23.5 kg/m2 07/06/2016 8:14am Height 64.25 inches 5'4.25" Weight 144.00 lb Pain Level 0 BMI (Body Mass Index) 24.5 kg/m2 06/01/2016 8:13am Height 64.25 inches 5'4.25" Weight 144.00 lb Respiratory Rate 18 /min Pain Level 1 BMI (Body Mass Index) 24.5 kg/m2 05/04/2016 8:21am Height 64.25 inches 5'4.25" Weight 144.00 lb Pain Level 0 BMI (Body Mass Index) 24.5 kg/m2 04/13/2016 9:54am Height 64.25 inches 5'4.25" Weight 144.00 lb Pain Level 2 BMI (Body Mass Index) 24.5 kg/m2 03/18/2016 3:17pm Height 64.25 inches 5'4.25" Weight 144.00 lb Heart Rate 72 /min BP Systolic 130 mmHg BP Diastolic 70 mmHg Pain Level 6 BMI (Body Mass Index) 24.5 kg/m2 Results Test Date Facility Test Result H/L Range Note Creatinine 07/23/2016 [facility] Creatinine 0.69 mg/dL N 0.51- 0.[address] [place] [address] [phone] Egfr Non- 81.7 N >60 Egfr 105.0 N >60 1 Xray 07/23/2016 [facility] MRI Cervical <pending> [address] [place] [address] [phone] Laboratory test 05/25/2016 [facility] Blood Urea 24 mg/dL N 6- [address] [place] [address] [phone] Creatinine 05/25/2016 [facility] Creatinine 0.88 mg/dL N 0.51- [address] [place] [address] [phone] Egfr Non- 61.7 N >60 Egfr 79.3 N >60 2 1 Because ethnic data is not always readily available, this report includes an eGFR for both -Americans and non- Americans. The National Kidney Disease Education Program (NKDEP) does not endorse the use of the MDRD equation for patients that are not between the ages of 18 and 70, are , have extremes of body size, muscle mass, or nutritional status, or are non- or non-. According to the National Kidney Foundation, irrespective of diagnosis, the stage of the disease is based on the level of kidney function: Stage Description GFR(mL/min/1.73 m(2)) 1 Kidney damage with normal or decreased GFR 90 2 Kidney damage with mild decrease in GFR 60-89 3 Moderate decrease in GFR 30-59 4 Severe decrease in GFR 15-29 5 Kidney failure <15 (or dialysis) 2 Because ethnic data is not always readily available, this report includes an eGFR for both -Americans and non- Americans. The National Kidney Disease Education Program (NKDEP) does not endorse the use of the MDRD equation for patients that are not between the ages of 18 and 70, are , have extremes of body size, muscle mass, or nutritional status, or are non- or non-. According to the National Kidney Foundation, irrespective of diagnosis, the stage of the disease is based on the level of kidney function: Stage Description GFR(mL/min/1.73 m(2)) 1 Kidney damage with normal or decreased GFR 90 2 Kidney damage with mild decrease in GFR 60-89 3 Moderate decrease in GFR 30-59 4 Severe decrease in GFR 15-29 5 Kidney failure <15 (or dialysis) Procedures Date Code Description Status 02/09/2017 18629 ECHO Transthoracic, Real-Time 2D With Doppler And Color Completed Flow 03/18/2016 80049 FX Patella Care Completed 08/31/2013 29528 ECHO Stress Test Incl Perf Contiuous ekg Monitoring W/Phys Completed Superv 06/29/2012 03288 Nerve Conduction 07-08 Studies Completed 06/29/2012 57010 Needle Electromyography Each Extremity W/Related Completed Paraspinal Areas Encounters Type Date Location Provider Dx Diagnosis Office Visit 04/12/2018 Orthopedic Malcolm Reyes, M19.032 Primary 10:00a Services Of Margret osteoarthritis, C.M.ADeepthi left wrist Office Visit 04/03/2018 Orthopedic Gabby Alva.2 Plantar fascial 1:30p Services Of fibrommarissa C.M.A. Office Visit 03/21/2018 Orthopedic Ross Alva84.374A Stress fracture , 8:15a Services Of right foot, initial C.M.A. 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 patella, 7thD M47.812 Spondylosis w/o myelopathy or radiculopathy, cervical region Office Visit 06/01/2016 8:00a Orthopedic Mich Simpson S82.035D Nondisp Services Of MD Cyndy transverse fx l C.M.A. patella, 7thD M54.2 Cervicalgia M47.892 Other spondylosis, cervical region Office Visit 05/04/2016 8:20a Orthopedic Mich Simpson S82.035D Nondisp Services Of MD Cyndy transverse fx l C.M.A. 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
--- NOTE | 2018-05-21 12:00 | ED ---
HPI Chest Pain - HPI Summary HPI Summary: Pt is an 83 year old F presenting to the ED with a chief complaint of chest pain onset this morning rated at 8/10 pain. The pain radiates to her arms and neck sometimes. She usually gets out of breath when she goes up and down stairs , but is not experiencing sob now. Pt denies nausea, vomiting, heart palpitations. She reports diaphoresis in shinto. - History of Current Complaint Chief Complaint: EDChestPainROMI Time Seen by Provider: 05/21/18 11:42 Hx Obtained From: Patient Onset/Duration: Started Hours Ago, Still Present Timing: Constant Initial Severity: Moderate Current Severity: Moderate Pain Intensity: 8 Pain Scale Used: 0-10 Numeric Chest Pain Location: Lower Sternal Chest Pain Radiates: Yes Chest Pain Radiates To:: Arm, Neck, Epigastric Aggravating Factor(s): Nothing Alleviating Factor(s): Nothing Associated Signs and Symptoms: Positive: Chest Pain, Diaphoresis, Abdominal Pain. Negative: Nausea, Palpitations, Vomiting - Additional Pertinent History Primary Care Physician: ROSE - Allergy/Home Medications Allergies/Adverse Reactions: Allergies Allergy/AdvReac Type Severity Reaction Status Date / Time fentanyl Allergy Altered Verified 03/27/18 16:54 Mental Status ropinirole Allergy Rash Verified 05/21/18 15:13 enviromental Allergy Mild Sneezing Uncoded 09/09/16 10:19 PMH/Surg Hx/FS Hx/Imm Hx Previously Healthy: No Endocrine/Hematology History: Denies: Hx Diabetes, Hx Systemic Lupus Erythematosus Cardiovascular History: Denies: Hx Congestive Heart Failure, Hx Hypertension, Hx Pacemaker/ICD Respiratory History: Reports: Hx Asthma History: Denies: Hx Dialysis, Hx Renal Disease Musculoskeletal History: Denies: Hx Rheumatoid Arthritis Sensory History: Reports: Hx Contacts or Glasses Denies: Hx Hearing Aid Opthamlomology History: Reports: Hx Contacts or Glasses Neurological History: Reports: Other Neuro Impairments/Disorders - PAIN CLINIC PATIENT Psychiatric History: Denies: Hx Panic Disorder - Cancer History Hx Chemotherapy: No Hx Radiation Therapy: No - Surgical History Surgery Procedure, Year, and Place: LT SHOULDER ROTATOR CUFF REPAIR, LT HIP REPLACEMENT, COMPLETE HYSTERECTOMY, APPY, 5 CORNEA TRANSPLANTS BILATERAL (DR JARVIS, DR ANN(NASHUA), T&A Infectious Disease History: No Infectious Disease History: Denies: History Other Infectious Disease, Traveled Outside the [place] in Last 30 Days - Family History Known Family History: Positive: Cardiac Disease, Hypertension, Diabetes, Other - NONCONTIBUTORY - Social History Alcohol Use: None Substance Use Type: Reports: None Smoking Status (MU): Never Smoked Tobacco Review of Systems Positive: Skin Diaphoresis Positive: Chest Pain. Negative: Palpitations Negative: Shortness Of Breath Positive: Abdominal Pain. Negative: Vomiting All Other Systems Reviewed And Are Negative: Yes Physical Exam - Summary Physical Exam Summary: VITAL SIGNS: Reviewed. GENERAL: Patient is a well-developed and nourished female who is lying comfortable in the stretcher. Patient is not in any acute respiratory distress. HEAD AND FACE: No signs of trauma. No ecchymosis, hematomas or skull depressions. No sinus tenderness. EYES: PERRLA, EOMI x 2, No injected conjunctiva, no nystagmus. EARS: Hearing grossly intact. Ear canals and tympanic membranes are within normal limits. MOUTH: Oropharynx within normal limits. NECK: Supple, trachea is midline, no adenopathy, no JVD, no carotid bruit, no c- spine tenderness, neck with full ROM. CHEST: Symmetric, no tenderness at palpation LUNGS: Clear to auscultation bilaterally. No wheezing or crackles. CVS: Regular rate and rhythm, S1 and S2 present, no murmurs or gallops appreciated. ABDOMEN: Epigastric and retrosternal chest tenderness, not reproducible upon palpation. EXTREMITIES: FROM in all major joints, no edema, no cyanosis or clubbing. NEURO: Alert and oriented x 3. No acute neurological deficits. Speech is normal and follows commands. SKIN: Dry and warm Triage Information Reviewed: Yes Vital Signs On Initial Exam: Initial Vitals Temp Pulse Resp BP Pulse Ox 98.6 F 94 21 180/98 94 05/21/18 11:39 05/21/18 11:39 05/21/18 11:39 05/21/18 11:39 05/21/18 11:39 Vital Signs Reviewed: Yes Diagnostics - Vital Signs Vital Signs Temp Pulse Resp BP Pulse Ox 05/21/18 11:39 98.6 F 94 21 180/98 94 - Laboratory Result Diagrams: 05/22/18 06:03 05/22/18 06:03 Lab Statement: Any lab studies that have been ordered have been reviewed, and results considered in the medical decision making process. - Radiology CXR Radiology Interpretation Completed By: Radiologist Summary of Radiographic Findings: No evidence for acute disease. ED physician has reviewed this report. - EKG 1134 Cardiac Rate: NL - 79bpm EKG Rhythm: Sinus Rhythm ST Segment: Non-Specific Ectopy: None Summary of EKG Findings: questionable ST elevation, <1mm 1159 Cardiac Rate: NL - 75bpm EKG Rhythm: Sinus Rhythm ST Segment: Non-Specific Ectopy: None EKG Comparison: No Significant Change Summary of EKG Findings: questionable ST elevation <1mm Re-Evaluation - Re-Evaluation 1 Re-Evaluation Time: 13:31 Change: Worse Comment: STEMI called at 1331. Chest Pain Course/Dx - Course Assessment/Plan: Pt is an 83 year old F presenting to the ED with a chief complaint of chest pain onset this morning rated at 8/10 pain. The pain radiates to her arms and neck sometimes. She usually gets out of breath when she goes up and down stairs, but is not experiencing sob now. Pt denies nausea, vomiting, heart palpitations. She reports diaphoresis in shinto. Initially the patient came in with epigastric and retrosternal chest pain. Therefore the patient was given aspirin and nitroglycerin. The first EKG shows that the patient may have an ST elevation in V5 and V6. Therefore I ordered blood work including a troponin and a second EKG. The second EKG also showed that the patient had a questionable ST elevation in V5 and V6 but is less than 1 mm. I discussed case with Dr. Velásquez and he reported that he with look at the EKG is hemodynamically. Blood work without any significant abnormality except for BUN of 25, troponin was 0.[address] Velásquez reports that he will contact Dr. Lanier and he recommends for the patient to be given heparin bolus,Brilinta and Nitroglycerin drip. Contact me and he recommends to repeat and EKG. EKG shows a normal sinus rhythm without any ST elevation. Therefore, I believe that the patient is having and non-STEMI. Dr. Lanier assessed the patient and he will take the patient to the catheter lab. Therefore the patient will be admitted to Dr. Lanier. At this point the patient is taking hemodynamically stable alert and oriented 3. - Diagnoses Provider Diagnoses: Non-ST elevated myocardial infarction (non-STEMI) - Critical Care Time Critical Care Time: 75-104 min Discharge - Sign-Out/Discharge Documenting (check all that apply): Patient Departure - Discharge Plan Condition: Stable Disposition: ADMITTED TO [facility] - Billing Disposition and Condition Condition: STABLE Disposition: Admitted to [facility] - Attestation Statements Document Initiated by Loisibe: Yes Documenting Scribe: Danica Tuttle Provider For Whom Yasmine is Documenting (Include Credential): Israel Curran MD. Scribe Attestation: Danica Guzman, scribed for Israel Curran MD. on 05/22/18 at 0737. Scribe Documentation Reviewed: Yes Provider Attestation: The documentation as recorded by the Danica wray accurately reflects the service I personally performed and the decisions made by Israel pino MD. Status of Scribe Document: Viewed Consult Consult: [id number] - Upon evaluation, Dr. Sevilla will be the admitting physician for the patient.
[2018-05-21] MEDS ORDERED: Aspirin 81 mg CHEW TAB* 81 MG TAB.CHEW PO ONE (12:10)
[2018-05-21] MEDS ORDERED: Nitroglycerin TAB 0.4 MG* 0.4 MG TAB SL ONE (12:10)
[2018-05-21 12:15] LABS: ABS Basophils 0.1 10^3/ul (0-0.2); ABS Eosinophils 0.2 10^3/ul (0-0.6); ABS Monocytes 1.1 10^3/ul (0-0.8); ABS Neutrophils 4.8 10^3/ul (1.5-7.7); ABS Nucleated RBC 0 10^3/ul; Eosinophil % 2.2 %; Hematocrit 43 % (35-47); Hemoglobin 14.1 g/dl (12.0-16.0); Mean Corpuscular HGB Conc 33 g/dl (31-36); Mean Corpuscular Hemoglobin 32 pg (27-31); Mean Corpuscular Volume 96 fL (80-97); Mean Platelet Volume 7.2 fL (7.4-10.4); Nucleated Red Blood Cells % 0.1; Platelet Count 340 10^3/ul (150-450); Red Blood Count 4.46 10^6/ul (4.00-5.40); Red Cell Distribution Width 13 % (10.5-15); White Blood Count 8.2 10^3/ul (3.5-10.8)
[2018-05-21 12:37] LABS: INR 0.85 (0.77-1.02)
[2018-05-21] MEDS ORDERED: Lidocaine 2% VISCOUS* 15 ML UDC PO ONE (12:59)
[2018-05-21] MEDS ORDERED: Al Hydrox/Mg Hydrox/Simet LIQ* 30 ML UDC PO ONE (12:59)
[2018-05-21] MEDS ORDERED: Heparin for STEMI(*) 5,000 UNITS/ML 1 ML VIAL IV ONE (13:21)
[2018-05-21] MEDS ORDERED: Ticagrelor* 90 MG TAB PO ONE ×2 (13:21→13:24)
[2018-05-21] MEDS ORDERED: nitroGLYCERIN DRIP* 25,000 MCG/250 ML BTL IV ONE (13:22)
[2018-05-21] MEDS ORDERED: Morphine VIAL* 4 MG/ML VIAL (1 ml vial) IV ONE (13:28)
[2018-05-21] MEDS ORDERED: VERAPAMIL 2.5 MG/ML 2 ML VIAL ** 5 mg/2 ml ONE (13:46)
[2018-05-21] MEDS ORDERED: Heparin(*) 1000 UNIT/ML 10 ML VIAL CATH LAB IV ONE (13:46)
[2018-05-21] MEDS ORDERED: Iohexol 350 (CONTRAST) 200 ML MDV IV ONE (13:47)
[2018-05-21] MEDS ORDERED: nitroGLYCERIN DRIP* 25,000 MCG/250 ML BTL ONE (13:47)
[2018-05-21] MEDS ORDERED: Heparin 2 UNITS/ML IVPREMIX* 1,000 ML IV ONE (13:47)
[2018-05-21] MEDS ORDERED: Lidocaine 1% INJ* 10 MG/ML 30 ML SDV ONE (13:47)
[2018-05-21] MEDS ORDERED: Midazolam* 1 MG/ML 10 ML VIAL (10 MG) ONE (14:28)
[2018-05-21] MEDS ORDERED: Acetaminophen TAB* 325 MG PO PRN (15:04)
[2018-05-21] MEDS ORDERED: NS 0.9% 1000 ML* 1,000 ML IV SCH (15:15)
[2018-05-21] MEDS ORDERED: Morphine INJ* 10 MG/ML 1 ML CARPUJECT IV PRN (17:23)
[2018-05-21] MEDS ORDERED: fentaNYL* 50 MCG/ML 2 ML VIAL (100 MCG VIAL) IV SLOW PU PRN (17:25)
[2018-05-21] MEDS ORDERED: Morphine VIAL* 4 MG/ML VIAL (1 ml vial) IV PRN (17:42)
[2018-05-21] MEDS: Ondansetron INJ* 2 MG/ML VIAL IV PRN (17:57)
[2018-05-21] MEDS ORDERED: Metoprolol Tartrate TAB* 25 MG PO ONE (18:00)
--- NOTE | 2018-05-21 18:13 | CONSULT ---
Subjective Date of Service: 05/21/18 Interval History: 05/21/2018 admission and consult PMD: Dr. Mcgee Service: Hospitalist CC: Chest and epigastric pain Reason for consult: Takotsubo cardiomyopathy HPI Josefa Mina is an 83 year old woman who was admitted with an ACS-like presentation and found with takotsubo cardiomyopathy. Her had an unexpected pacemaker placed within the last few months after a cardioversion with Dr. Luis Kong. About that time she noticed brief chest pain on stairs resolved within a second but this did not stress her. Then this past week her dog unexpectedly and day prior to admission she received an unexpected bill over $40,000.00 from the [employer]. This morning she was ringing bells in christian and developed severe chest and epigastric pain. She had an EKG with non- diagnostic < [address] elevation and unremitting chest pain so she was taken for an urgent coronary angiogram showing normal coronary arteries and typical mid and apical akinesis (without an apical thrombus) and hyperdynamic basal segments. She has no hemodynamic instability or murmur on exam. She continues to have intermittent chest and epigastric pain. Her only other complaint has been intermittent edema of the right leg. Her 2 children and are at bedside. She plans to go to [place] later this month to visit relatives. PAST MEDICAL HISTORY: 1. Osteoarthritis. 2. Asthma. 3. Cervical disk disease. 4. 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 5. History of multiple cataract surgeries. 6. History of hip replacement. 7. History of rotator cuff injury. MEDICATIONS: Outpatient are: 1. Nabumetone 500 mg p.o. b.i.d. 2. Estradiol 0.3 mg p.o. daily. 3. Benadryl prn. She is also on three eye drops but she does not know the name of them. ALLERGIES: ROPINIROLE. FAMILY HISTORY: Reviewed and Noncontributory. SOCIAL HISTORY: No report of alcohol, tobacco, or drug use. The patient lives with her and her daughters are also staying with her. She states that her daughters to be her healthcare proxy. Medications Active Medications: Acetaminophen (Tylenol Tab*) 650 mg PO Q4H PRN PRN Reason: FEVER/PAIN Last Admin: 05/21/18 17:18 Dose: 650 mg Enoxaparin Sodium (Lovenox(*)) 50 mg SUBCUT Q12H [facility] Sodium Chloride (Ns 0.9% 1000 Ml*) 1,000 mls @ 100 mls/hr IV .per rate [place] Stop: 05/21/18 19:14 Last Admin: 05/21/18 15:38 Dose: 100 mls/hr Lisinopril (Prinivil Tab*) 2.5 mg PO DAILY [facility] Metoprolol Tartrate (Lopressor Tab*) 25 mg PO Q12HR [facility] Morphine Sulfate (Morphine Vial*) 2 mg IV Q2H PRN PRN Reason: PAIN Last Admin: 05/21/18 17:57 Dose: 2 mg Ondansetron HCl (Zofran Inj*) 4 mg IV Q4H PRN PRN Reason: NAUSEA Last Admin: 05/21/18 17:57 Dose: 4 mg Home Medications: Home meds need reconciled Review of Systems - Measurements Intake and Output: Intake and Output Last 24 Hours 05/19/18 05/20/18 05/21/18 05/22/18 06:59 06:59 06:59 06:59 Output Total 300 Balance -300 Weight 141 lb 12.116 oz Output: Urine 300 - Review of Systems Constitutional Symptoms: Negative: Weight Gain, Weight Loss, Weakness Dermatology: Negative: Rash, Skin Lesions HEENT: Negative: Change in Hearing, Vertigo Eyes: Negative: Change in Vision, Double Vision Thyroid: Negative: Cold Intolerance, Heat Intolerance, Palpitations, Primary Hypothyroidism, Primary Hyperthyroidism, Weight Loss, Weight Gain Pulmonary: Negative: Cough, Sputum, Hemoptysis, Wheezing, Respiratory Distress, Shortness of Breath, COPD, Asthma, Exercise Intolerance, Home Oxygen Cardiology: Positive: Chest Pain, Edema Negative: Shortness of Breath, Palpitations, Swelling of Ankles, Peripheral Vascular Dis, Faintness, Syncope, Claudication, Paroxysmal Nocturnal Dyspnea, Orthopnea Gastroenterology: Positive: Abdominal Pain, Nausea Negative: Anorexia, Difficulty Swallowing, Constipation, Diarrhea, Haematemesis, Melena Genital - Urinary: Negative: Dysuria, Hematuria Musculoskeletal: Negative: Joint Pain, Joint Stiffness Endocrinology: Negative: Obesity, Diabetes, Hyperglycemia, Hypoglycemia, Polydipsia, Polyuria Hematologic/Lymphatic: Negative: Use of Anticoagulant, Use of Antiplatelet Drugs Neurology: Negative: Diplopia, Dizziness, Change in Speech, Change in Sphincter Function , Hx of Stroke\TIA, Hx Seizures Psychiatry: Negative: Unusual Anxiety, Suicidal Ideation Allergic/Immunologic: Negative: Hx HIV, Immunocompromise Review of Systems Statement: All other review of systems negative, unless stated above. Objective Vital Signs: Temp Pulse Resp BP Pulse Ox 99.1 F 68 18 138/72 98 05/21/18 15:13 05/21/18 17:01 05/21/18 17:57 05/21/18 17:00 05/21/18 17:01 Oxygen Devices in Use Now: Nasal Cannula Appearance: pleasant, nad Ears/Nose/Mouth/Throat: Clear Oropharnyx, Mucous Membranes Moist Neck: NL Appearance and Movements; NL JVP, Trachea Midline Respiratory: Symmetrical Chest Expansion and Respiratory Effort, Clear to Auscultation Cardiovascular: NL Sounds; No Murmurs; No JVD, RRR, No Edema Abdominal: NL Sounds; No Tenderness; No Distention Extremities: No Edema Skin: No Rash or Ulcers Neurological: Alert and Oriented x 3 Laboratory Results: 05/21/18 12:08 05/21/18 12:08 INR (Anticoag Therapy) 0.85 (0.77-1.02) 05/21/18 12:08 APTT 30.2 seconds (26.0-36.3) 05/21/18 12:08 Total Bilirubin 0.50 mg/dL (0.2-1.0) 05/21/18 12:08 AST 21 U/L (13-39) 05/21/18 12:08 ALT 12 U/L (7-52) 05/21/18 12:08 Alkaline Phosphatase 73 U/L (34-104) 05/21/18 12:08 CK-MB (CK-2) 4.9 ng/mL (0.6-6.3) 05/21/18 12:08 B-Natriuretic Peptide 114 pg/mL (<=100) H 05/21/18 12:08 Total Protein 7.1 g/dL (6.4-8.9) 05/21/18 12:08 Albumin 4.2 g/dL (3.2-5.2) 05/21/18 12:08 Globulin 2.9 g/dL (2-4) 05/21/18 12:08 Albumin/Globulin Ratio 1.4 (1-3) 05/21/18 12:08 TSH 4.24 mcIU/mL (0.34-5.60) 05/21/18 12:08 05/21/18 05/21/18 12:08 15:37 Troponin I 0.28 H* 2.69 H* Diagnostic Imagin05/21/2018: CXR no acute disease EKG Data: ekg 05/21/2018: NSR, LAD, < 1 mm FAVIOLA v4-v6 unchanged on repeat and new since 2016 Assessment/Plan 1. Takotsubo cardiomyopathy, LVEF 35% - No murmur, arrhythmias, apical thrombus on angiogram or hemodynamic instability. 2. Intermittent edema R leg - Admit to ICU - Start full dose AC with lovenox now for duration of hospitalization - Would use narcotics and BB to treat pain. - Can use PRN benzodiazepines if needed - d/c nitro gtt (ordered) - Start metoprolol 25 mg po bid (ordered) - Continue low dose lisinopril - Would d/c IVF after 1 liter - Check US R leg (ordered) - Check echo Tuesday (ordered) Thank you for allowing me to participate in the cardiovascular care of this patient. Please do not hesitate to contact me with questions or concerns.
[2018-05-21] MEDS ORDERED: Calcium Carbonate CHEW TAB* 500 MG (TUMS) PO PRN (18:47)
[2018-05-21] MEDS ORDERED: Metoprolol Tartrate TAB* 25 MG PO SCH (21:00)
--- NOTE | 2018-05-21 23:18 | HP ---
CC: Dr. Mcgee* [facility] MEDICINE HISTORY AND PHYSICAL: DATE OF ADMISSION: 05/21/18 PRIMARY CARE PHYSICIAN: Dr. Mcgee. ATTENDING PHYSICIAN: Dr. Stacy Aviles * (dictation provided by Oren Bey NP ). CHIEF COMPLAINT: Chest pain. HISTORY OF PRESENT ILLNESS: Ms. 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 The patient states that she has been doing well with no acute complaints. She states she is very active and she "hikes all over the place." She reports that she was at hoahaoism today ringing bells when she suddenly developed severe chest pain. She never felt pain like this before in her life. She was quite concerned and therefore came to the emergency room for evaluation. She denies any other complaints including shortness of breath, nausea, vomiting, diarrhea, or abdominal pain. She denies any new recent stressors to me but I will not that she has mentioned the recent of her dog and receiving a large IRS in the past week to other providers. In the emergency room, Ms. Mina had a first troponin, which was 0.28. She had an EKG. The EKG showed sinus rhythm with a heart rate of about 80, but does show abnormal ST elevations in V2 through V6. For that reason, Dr. Lanier from the [facility] was called and the patient was taken to the cardiac photonic laboratory technician. Patient was found to have no significant coronary artery disease but to have takutsubo's cardiomyopathy. PAST MEDICAL HISTORY: 1. Osteoarthritis. 2. Asthma. 3. Cervical disk disease. 4. 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 5. History of multiple cataract surgeries. 6. History of hip replacement. 7. History of rotator cuff injury. MEDICATIONS: Outpatient are: Patient confirms the following medications: 1. Nabumetone 500 mg p.o. b.i.d. 2. Estradiol 0.3 mg p.o. daily. 3. Benadryl prn. She is also on three eye drops but she does not know the name of them. ALLERGIES: ROPINIROLE. FAMILY HISTORY: Reviewed and Noncontributory. SOCIAL HISTORY: No report of alcohol, tobacco, or drug use. The patient lives with her and her daughters are also staying with her. She states that her daughters to be her healthcare proxy. REVIEW OF SYSTEMS: A 14-point review of systems was completed with Ms. Mina and all those not mentioned above were negative. PHYSICAL EXAMINATION GENERAL: Ms. Mina is lying in the bed in the ICU. She is in no acute distress. VITAL SIGNS: Temperature 99.1, pulse rate 78, respiratory rate 17, O2 saturation 96% on room air, blood pressure 139/83. LUNGS: Clear to auscultation bilaterally with no accessory muscle use and good aeration. HEART: S1, S2. No murmur, rub, or gallop, and regular. ABDOMEN: Soft and nontender with bowel sounds positive x4 extremities. EXTREMITIES: No cyanosis or edema. NEURO: She is alert. She is oriented x3. She moves all extremities equally. There is no facial asymmetry or focal weakness. Extraocular movements are intact. SKIN: Intact. DIAGNOSTIC STUDIES/LAB DATA: WBC 8.2, hemoglobin 14.1, hematocrit 43, platelet count 340. INR 0.85. Sodium 138, potassium 3.9, chloride 104, serum bicarbonate 26, BUN 25, creatinine 0.74, glucose 100, lactic acid 1.2. Initial troponin was 0.28. After she came out of the photonic laboratory technician, her troponin was 2.69. TSH 4.24. EKG is as described above. ASSESSMENT: Ms. 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 Our plans are for inpatient admission as expected length of stay will be greater than 2 days for the followin. Takutsubo's cardiomyopathy: Per the verbal report from Dr. Lanier, she had clear coronary arteries, but did show evidence of stress-induced or Takotsubo cardiomyopathy. The patient is hemodynamically stable. Plans are for her to be monitored in the ICU. Dr. Lanier has recommended the initiation of low dose lisinopril and metoprolol, which has been done. Dr. Velásquez has also ordered Lovenox b.i.d. Further management will be per Cardiology. 2. Multiple ophthalmological problems: The patient reports long-term history of multiple ophthalmological problems. We will continue all of her home eye drops. 3. Code status is full code. TIME SPENT: Approximately 60 minutes were spent in the admission of this patient, more than half the time spent with the patient at the bedside reviewing the events leading up to this hospitalization, performing the physical examination, and reviewing my plan of care. OREN BEY NP [id number]/[facility] #: [id number] JOEL
[2018-05-22] MEDS: Omeprazole CAP* 20 MG PO SCH ×3 (03:56→20:14)
[2018-05-22] MEDS: Enoxaparin(*) 60 MG/0.6 ML SYR SUBCUT SCH ×3 (03:56→20:42)
[2018-05-22] MEDS: Ondansetron INJ* 2 MG/ML VIAL IV PRN (05:58)
[2018-05-22] MEDS ORDERED: Metoprolol Tartrate TAB* 25 MG PO SCH (06:00)
[2018-05-22 06:16] LABS: ABS Basophils 0 10^3/ul (0-0.2); ABS Eosinophils 0.3 10^3/ul (0-0.6); ABS Lymphocytes 2.3 10^3/ul (1.0-4.8); ABS Monocytes 1.1 10^3/ul (0-0.8); ABS Neutrophils 3.4 10^3/ul (1.5-7.7); ABS Nucleated RBC 0 10^3/ul; Eosinophil % 4.7 %; Hematocrit 39 % (35-47); Hemoglobin 12.8 g/dl (12.0-16.0); Lymphocyte % 32.4 %; Mean Corpuscular HGB Conc 33 g/dl (31-36); Mean Corpuscular Hemoglobin 32 pg (27-31); Mean Corpuscular Volume 96 fL (80-97); Mean Platelet Volume 7.3 fL (7.4-10.4); Nucleated Red Blood Cells % 0.2; Platelet Count 306 10^3/ul (150-450); Red Blood Count 4.04 10^6/ul (4.00-5.40); Red Cell Distribution Width 14 % (10.5-15); White Blood Count 7.2 10^3/ul (3.5-10.8)
[2018-05-22 06:31] LABS: EGFR Non-African American 88.6 (>60)
--- NOTE | 2018-05-22 07:15 | CATH ---
CC: Dr. Niranjan Velásquez; Dr. Gabriele Mcgee. * CARDIAC CATHETERIZATION REPORT: DATE OF PROCEDURE: 05/21/18 INDICATION FOR THE CARDIAC CATHETERIZATION: Abnormal EKG with positive enzymes with epigastric discomfort and presentation with belching, suggesting acute coronary syndrome. PROCEDURE: Coronary arteriography, left heart catheterization, left ventriculography. APPROACH: The right radial artery was assessed under clinical laboratory aides teacher under ultrasound for size and was found to be appropriate for an approach. EQUIPMENT UTILIZED: 1. Right radial artery sheath with a 6-[place] Glidesheath. 2. Diagnostic coronary catheter, TIG 4, 5 curve catheter. 3. Diagnostic guidewire, exchange-length Keita curved guidewire. 4. Left heart catheterization catheter 5-[place] PIG Performa radial catheter. MEDICATIONS AT THE TIME OF PATIENT'S PRESENTATION INTO THE NUTRITIONISTS: 1. The patient was on nitroglycerin 10 mcg/minute. 2. She was on oxygen 2 L/minute. 3. The nitroglycerin drip was increased to 15 mcg/minute due to significant hypertension in the clinical laboratory aides teacher. CONSENT: The patient was interviewed and examined in the emergency room where the risks and benefits were explained. She understood them and wished to proceed. DESCRIPTION OF PROCEDURE: The patient was brought to the cardiovascular laboratory, formal time-out was performed. The patient was prepped and draped in a sterile fashion. Under ultrasound guidance, the right radial artery was cannulated and the sheath was placed. Diagnostic coronary arteriography was performed. A central aortic pressure was recorded using a PIG Performa catheter. The catheter was then placed across the aortic valve. Left ventricular pressure was recorded. Left ventriculography was performed utilizing a total of 20 cc of Omnipaque dye at a rate of 10 cc/sec. The catheter was then pulled back across the aortic valve to recheck gradient. At the end of the case, the catheter and sheath were removed and hemostasis was obtained with a Vasc Band. The reverse Barbeau was a B. The total contrast used was 50 mL of Omnipaque dye. The radiation exposure included 5.5 minutes of fluoro time. The air kerma was 555 milligray, the DAP radiation was 3807 microgray/sq. m. RESULTS: HEMODYNAMIC DATA: Left heart catheterization - central aortic pressure recorded at 158/80 with mean of 115. Left ventricular pressure 161, the left ventricular end diastolic pressure of 30. LEFT VENTRICULOGRAPHY: Performed in the AMOS projection revealed severe hypo to akinesis of the mid anterior wall, anterior apical, apical, distal inferior, and mid inferior wall with hyperdynamic contractility of the proximal portion of the ventricle, all consistent with the appearance of the Takotsubo syndrome. Overall, ejection fraction estimated 35%. There appeared to be some degree of mitral regurgitation noted, poor quality of 4 grading. CORONARY ARTERIOGRAPHY: A. Left coronary artery: 1. Left main - widely patent. 2. Left anterior descending artery - there were no significant lesions seen throughout the course of the left anterior descending artery as it traversed to the apical region and minimally onto the distal inferior wall. There was corkscrew appearance to the distal portion of the vessel suggesting left ventricular hypertrophy. 3. Circumflex artery - nondominant vessels supplying a thin first obtuse marginal branch followed by a mid obtuse marginal branch then a low lying bifurcating obtuse marginal branch. No significant lesion was seen throughout the course of the vessel. B. Right coronary artery - a dominant vessel supplying the PDA and 2 posterior left ventricular branches. No significant lesions were seen throughout the course of the vessel. OVERALL ASSESSMENT: No significant coronary artery disease with presence of significant left ventricular systolic dysfunction as described above suggesting Takotsubo syndrome. This information was shared with both the hospitalist, Dr. Stacy Aviles, who will be admitting the patient as well as Dr. Niranjan Velásquez, who is the emblem fuser tender on consult on the case. Obvious aggressive medication for LV dysfunction and possible anticoagulation on an extended period may be necessary. [id number]/[facility] #: [id number] MTDD
[2018-05-22] MEDS: Lisinopril TAB* 5 MG PO SCH (09:45)
[2018-05-22] MEDS ORDERED: Metoprolol Tartrate TAB* 25 MG ONE (11:51)
[2018-05-22] MEDS: Metoprolol Tartrate TAB* 25 MG PO SCH ×2 (11:53→20:15)
--- NOTE | 2018-05-22 12:53 | PN ---
Subjective Date of Service: 05/22/18 Interval History: Pt stated that "occasionally " she would feels " a pinch in her chest ". None recently. O2 sats dropped down to 80's on RA, then placed back to 2L. Denies SOB Objective Active Medications: Acetaminophen (Tylenol Tab*) 650 mg PO Q4H PRN PRN Reason: FEVER/PAIN Last Admin: 05/21/18 17:18 Dose: 650 mg Calcium Carbonate (Tums*) 500 mg PO Q4H PRN PRN Reason: INDIGESTION Enoxaparin Sodium (Lovenox(*)) 50 mg SUBCUT Q12H [facility] Last Admin: 05/22/18 11:47 Dose: Not Given Latanoprost (Xalatan 0.005%*) 1 drop RIGHT EYE BEDTIME [facility] Lisinopril (Prinivil Tab*) 2.5 mg PO DAILY [facility] Last Admin: 05/22/18 09:45 Dose: 2.5 mg Metoprolol Tartrate (Lopressor Tab*) 12.5 mg PO BID [facility] Last Admin: 05/22/18 11:53 Dose: 12.5 mg Morphine Sulfate (Morphine Vial*) 2 mg IV Q2H PRN PRN Reason: PAIN Last Admin: 05/21/18 17:57 Dose: 2 mg Ofloxacin (Ocuflox Opth 0.3%(Nf)) 1 drop RIGHT EYE QID [facility] Omeprazole (Prilosec Cap*) 20 mg PO BID [facility] Last Admin: 05/22/18 09:46 Dose: 20 mg Ondansetron HCl (Zofran Inj*) 4 mg IV Q4H PRN PRN Reason: NAUSEA Last Admin: 05/22/18 05:58 Dose: 4 mg Prednisolone Acetate (Pred Forte 1%*) 1 drop RIGHT EYE BID [facility] Timolol Maleate (Timoptic 0.5% Opth*) 1 drop RIGHT EYE BID [facility] Vital Signs - 8 hr 05/22/18 05/22/18 05/22/18 05:00 05:01 05:15 Temperature Pulse Rate 54 55 56 Respiratory 17 16 17 Rate Blood Pressure 107/57 95/65 (mmHg) O2 Sat by Pulse 91 90 91 Oximetry 05/22/18 05/22/18 05/22/18 05:45 06:00 06:01 Temperature Pulse Rate 55 54 51 Respiratory 18 14 12 Rate Blood Pressure 112/65 120/66 (mmHg) O2 Sat by Pulse 91 96 96 Oximetry 05/22/18 05/22/18 05/22/18 06:15 06:30 06:45 Temperature Pulse Rate 50 52 53 Respiratory 16 15 15 Rate Blood Pressure 119/59 120/61 113/60 (mmHg) O2 Sat by Pulse 95 94 95 Oximetry 05/22/18 05/22/18 05/22/18 07:00 07:01 07:30 Temperature Pulse Rate 58 54 56 Respiratory 16 14 16 Rate Blood Pressure 124/60 130/69 (mmHg) O2 Sat by Pulse 96 96 90 Oximetry 05/22/18 05/22/18 05/22/18 07:47 08:00 08:01 Temperature Pulse Rate 56 49 52 Respiratory 18 9 8 Rate Blood Pressure 137/70 121/61 (mmHg) O2 Sat by Pulse 89 97 92 Oximetry 05/22/18 05/22/18 05/22/18 08:30 09:00 09:01 Temperature Pulse Rate 54 53 52 Respiratory 18 15 17 Rate Blood Pressure 127/63 118/60 (mmHg) O2 Sat by Pulse 95 95 95 Oximetry 05/22/18 05/22/18 05/22/18 09:58 10:00 10:04 Temperature Pulse Rate 63 Respiratory 14 23 20 Rate Blood Pressure 127/73 (mmHg) O2 Sat by Pulse 95 Oximetry 05/22/18 05/22/18 05/22/18 11:00 11:10 11:47 Temperature 97.9 F Pulse Rate 66 Respiratory 19 20 Rate Blood Pressure 95/69 (mmHg) O2 Sat by Pulse 92 Oximetry 05/22/18 05/22/18 12:00 12:01 Temperature Pulse Rate 76 66 Respiratory 33 24 Rate Blood Pressure 104/55 (mmHg) O2 Sat by Pulse 92 92 Oximetry Oxygen Devices in Use Now: None, Nasal Cannula Appearance: 83 yo f in NAD, aAOx3 Eyes: No Scleral Icterus, PERRLA Ears/Nose/Mouth/Throat: NL Teeth, Lips, Gums, Mucous Membranes Moist Neck: NL Appearance and Movements; NL JVP, Trachea Midline Respiratory: Symmetrical Chest Expansion and Respiratory Effort, - - RLL crackles Cardiovascular: NL Sounds; No Murmurs; No JVD, RRR Abdominal: NL Sounds; No Tenderness; No Distention, No Hepatosplenomegaly Lymphatic: No Cervical Adenopathy Extremities: No Edema Skin: No Rash or Ulcers, No Nodules or Sclerosis Neurological: Alert and Oriented x 3, NL Muscle Strength and Tone Result Diagrams: 05/22/18 06:03 05/22/18 06:03 Microbiology and Other Data: Microbiology 05/21/18 15:11 Nasal Screen MRSA (PCR) - Final Nasal Mrsa Not Detected Assess/Plan/Problems-Billing Assessment: 83 yo F with h/o astma, OA, blind in R eye presents with 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 cont ACEI and BB(lopressor lowered due to bradycardia today.) (2) Hypoxemia Comment: PCXR ordered Will f/u daily weights and watch for CHF Echo ordered for tomorrow (3) DVT prophylaxis Comment: lovenox Status and Disposition: Inpatient
[2018-05-22] MEDS: OFLOXACIN 0.3% RIGHT EYE SCH ×4 (15:33→22:33)
[2018-05-22] MEDS: PTO:Timolol 0.5% OPTH.SOL* BTL RIGHT EYE SCH (20:25)
[2018-05-22] MEDS: PTO:Latanoprost 0.005%* 2.5 ml BTL RIGHT EYE SCH (20:40)
[2018-05-22] MEDS: prednisoLONE 1% OPHTH.SUSP* 5 ML OPHTH.SUSP RIGHT EYE SCH (20:41)
[2018-05-23 06:28] LABS: ABS Basophils 0 10^3/ul (0-0.2); ABS Eosinophils 0.3 10^3/ul (0-0.6); ABS Lymphocytes 2.6 10^3/ul (1.0-4.8); ABS Monocytes 0.9 10^3/ul (0-0.8); ABS Neutrophils 2.8 10^3/ul (1.5-7.7); ABS Nucleated RBC 0 10^3/ul; Hematocrit 38 % (35-47); Hemoglobin 12.5 g/dl (12.0-16.0); Lymphocyte % 38.3 %; Mean Corpuscular HGB Conc 33 g/dl (31-36); Mean Corpuscular Hemoglobin 32 pg (27-31); Mean Corpuscular Volume 97 fL (80-97); Mean Platelet Volume 7.3 fL (7.4-10.4); Nucleated Red Blood Cells % 0.1; Platelet Count 292 10^3/ul (150-450); Red Blood Count 3.91 10^6/ul (4.00-5.40); Red Cell Distribution Width 14 % (10.5-15); White Blood Count 6.7 10^3/ul (3.5-10.8)
[2018-05-23 06:55] LABS: EGFR Non-African American 69.5 (>60)
[2018-05-23] MEDS: Enoxaparin(*) 60 MG/0.6 ML SYR SUBCUT SCH ×2 (08:27→21:18)
[2018-05-23] MEDS ORDERED: Al Hydrox/Mg Hydrox/Simet LIQ* 30 ML UDC PO PRN (08:33)
[2018-05-23] MEDS ORDERED: Morphine VIAL* 4 MG/ML VIAL (1 ml vial) IV ONE (09:00)
[2018-05-23] MEDS: Lisinopril TAB* 5 MG PO SCH (09:53)
[2018-05-23] MEDS: Metoprolol Tartrate TAB* 25 MG PO SCH ×3 (09:54→21:19)
[2018-05-23] MEDS: Omeprazole CAP* 20 MG PO SCH ×2 (09:55→21:19)
[2018-05-23] MEDS: OFLOXACIN 0.3% RIGHT EYE SCH ×4 (09:55→21:15)
[2018-05-23] MEDS: prednisoLONE 1% OPHTH.SUSP* 5 ML OPHTH.SUSP RIGHT EYE SCH ×2 (09:56→21:17)
[2018-05-23] MEDS: PTO:Timolol 0.5% OPTH.SOL* BTL RIGHT EYE SCH ×2 (09:56→21:18)
[2018-05-23] MEDS ORDERED: Iohexol 300* (CONTRAST) 10 ML SDV IV ONE (10:48)
--- NOTE | 2018-05-23 11:07 | PN ---
Subjective Date of Service: 05/23/18 Interval History: RN noted this AM, pt's QTc is >560 msec. Zofran was discontinued. Today pt c/o epigastric pressure that she had been feeling at home for the past several days. It was thought to be angina equivalent in this pt during earlier cardiac evaluations. Objective Active Medications: Acetaminophen (Tylenol Tab*) 650 mg PO Q4H PRN PRN Reason: FEVER/PAIN Last Admin: 05/21/18 17:18 Dose: 650 mg Al Hydrox/Mg Hydrox/Simethicone (Maalox Plus*) 30 ml PO Q4H PRN PRN Reason: discomfort Calcium Carbonate (Tums*) 500 mg PO Q4H PRN PRN Reason: INDIGESTION Enoxaparin Sodium (Lovenox(*)) 50 mg SUBCUT Q12H [facility] Last Admin: 05/23/18 08:27 Dose: 50 mg Latanoprost (Xalatan 0.005%*) 1 drop RIGHT EYE BEDTIME [facility] Last Admin: 05/22/18 20:40 Dose: 1 drop Lisinopril (Prinivil Tab*) 2.5 mg PO DAILY [facility] Last Admin: 05/23/18 09:53 Dose: 2.5 mg Metoprolol Tartrate (Lopressor Tab*) 12.5 mg PO BID [facility] Last Admin: 05/23/18 10:02 Dose: Not Given Morphine Sulfate (Morphine Vial*) 2 mg IV Q2H PRN PRN Reason: PAIN Last Admin: 05/21/18 17:57 Dose: 2 mg Ofloxacin (Ocuflox Opth 0.3%(Nf)) 1 drop RIGHT EYE QID [facility] Last Admin: 05/23/18 09:55 Dose: 1 drop Omeprazole (Prilosec Cap*) 20 mg PO BID [facility] Last Admin: 05/23/18 09:55 Dose: 20 mg Prednisolone Acetate (Pred Forte 1%*) 1 drop RIGHT EYE BID [facility] Last Admin: 05/23/18 09:56 Dose: Not Given Timolol Maleate (Timoptic 0.5% Opth*) 1 drop RIGHT EYE BID [facility] Last Admin: 05/23/18 09:56 Dose: 1 drop Vital Signs - 8 hr 05/23/18 05/23/18 05/23/18 04:00 04:01 05:00 Temperature 97.4 F Pulse Rate 52 53 53 Respiratory 16 16 16 Rate Blood Pressure 105/53 102/48 (mmHg) O2 Sat by Pulse 93 92 98 Oximetry 05/23/18 05/23/18 05/23/18 05:01 06:00 06:01 Temperature Pulse Rate 54 49 50 Respiratory 16 18 16 Rate Blood Pressure 100/50 (mmHg) O2 Sat by Pulse 96 96 95 Oximetry 05/23/18 05/23/18 05/23/18 07:00 07:01 07:58 Temperature Pulse Rate 51 51 63 Respiratory 17 17 16 Rate Blood Pressure 109/47 160/81 (mmHg) O2 Sat by Pulse 98 97 94 Oximetry 05/23/18 05/23/18 05/23/18 08:00 08:01 08:26 Temperature 98.2 F Pulse Rate 61 59 56 Respiratory 21 19 20 Rate Blood Pressure 146/72 145/68 (mmHg) O2 Sat by Pulse 91 90 89 Oximetry 05/23/18 05/23/18 05/23/18 09:00 10:00 10:01 Temperature Pulse Rate 57 55 Respiratory 24 19 17 Rate Blood Pressure 148/94 (mmHg) O2 Sat by Pulse 96 96 Oximetry Oxygen Devices in Use Now: None Appearance: 83 yo F in nAD, aAOx3 Eyes: No Scleral Icterus, PERRLA Ears/Nose/Mouth/Throat: NL Teeth, Lips, Gums, Mucous Membranes Moist Neck: NL Appearance and Movements; NL JVP, Trachea Midline Respiratory: Symmetrical Chest Expansion and Respiratory Effort, - - faint bibasiliar crackles Cardiovascular: NL Sounds; No Murmurs; No JVD, RRR Abdominal: - - tenderness could not be elicited in the epigastrium there pt indicated pressure like sensation Lymphatic: No Cervical Adenopathy Extremities: No Edema, No Clubbing, Cyanosis Skin: No Rash or Ulcers, No Nodules or Sclerosis Neurological: Alert and Oriented x 3, NL Muscle Strength and Tone Result Diagrams: 05/23/18 06:15 05/23/18 06:15 Microbiology and Other Data: Microbiology 05/21/18 15:11 Nasal Screen MRSA (PCR) - Final Nasal Mrsa Not Detected Assess/Plan/Problems-Billing Assessment: 83 yo F with h/o astma, OA, blind in R eye presents with 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 cont ACEI and BB(lopressor lowered due to bradycardia 05/22/18) repeat Echo today pending. due to QT prolongation(due to T morphology ) Zofran was d/c'd epigastric pressure is likely angina equivalent , but will check CT abd / plevis to r/o other abn (2) Hypoxemia Comment: resolving. 02 at 93 % today on RA Echo ordered for tomorrow (3) DVT prophylaxis Comment: lovenox Status and Disposition: Inpatient
--- NOTE | 2018-05-23 17:21 | ECHO ---
Patient: TACHO POSADAS [facility] Rec#: [id number] : 1935 Date: 05/23/2018 Age: 83y Height: 167.64 cm / 66.0 in Weight: 63.5 kg / 140.0 lbs Sex: F BSA: 1.72 Room#: ICU 2 Admit Date#: 05/21/2018 Type: Inpatient Referring: Niranjan Velásquez DO Reading: Jacob Díaz MD Credit Risk Modeler: Selma Navarro RDCS,RDMS CC: Gabriele Mcgee MD Transthoracic Echocardiogram Indication: CHF BP: 100/50 HR: 71 Rhythm: NSR Findings History: Cardiomyopathy by cath, asthma. Technical Comments: The study quality is good. Left Ventricle: The left ventricular chamber size is normal. Mild concentric left ventricular hypertrophy is observed. There is a focal wall motion abnormality present. There is mildly decreased left ventricular systolic function. The estimated ejection fraction is 45-50%. Abnormal left ventricular diastolic filling is observed, consistent with impaired relaxation. The apical septal, apical anterior, apical lateral, and apical inferior wall segments are hypokinetic (score 2). Overall wallmotion score index is 2.00 Left Atrium: The left atrium is mildly dilated. Right Ventricle: The right ventricular chamber size and systolic function are within normal limits. Right Atrium: The right atrial cavity size is normal. Aortic Valve: The aortic valve is trileaflet. The aortic valve leaflets are mildly thickened. There is aortic annular calcification. There is trace to mild aortic regurgitation. There is no evidence of aortic stenosis. Mitral Valve: There is mitral annular calcification. The mitral valve leaflets are mildly thickened. There is trace to mild mitral regurgitation. There is no evidence of mitral stenosis. Tricuspid Valve: The tricuspid valve leaflets are normal. There is mild to moderate tricuspid regurgitation. There is evidence of mild pulmonary hypertension. Pulmonic Valve: The pulmonic valve appears normal. There is a trace pulmonic regurgitation. Pericardium: There is no significant pericardial effusion. Aorta: The aortic root appears normal. There is no dilatation of the aortic arch. Pulmonary Artery: The main pulmonary artery appears normal. Venous: The inferior vena cava is dilated. There is a greater than 50% respiratory change in the inferior vena cava dimension. Conclusions There is mildly decreased left ventricular systolic function. There is a focal wall motion abnormality present. The estimated ejection fraction is 45-50%. The apical septal, apical anterior, apical lateral, and apical inferior wall segments are hypokinetic (score 2). There is trace to mild aortic regurgitation. There is trace to mild mitral regurgitation. There is mild to moderate tricuspid regurgitation. There is evidence of mild pulmonary hypertension. There is no significant pericardial effusion. Measurements Name Value Normal Range RVIDd (AP) 2D 2.4 cm (0.9 - 2.6) RVDdMajor (2D) 2.6 cm (2.2 - 4.4) RAd ISD 4CH 4.1 cm (3.4 - 4.9) RA (A4C)W 3.4 cm (2.9 - 4.6) IVSd (2D) 1.3 cm (0.6 - 1) LVPWd (2D) 1.2 cm (0.6 - 1) LVIDd (2D) 3.4 cm (3.6 - 5.4) LVIDs (2D) 2.3 cm - LV FS (2D) 34 % (25 - 45) Aortic Annulus 2 cm (1.4 - 2.6) Ao root diameter (2D) 2.9 cm (2.1 - 3.5) Ascending Ao 2.9 cm (2.1 - 3.4) Aortic arch 2.7 cm (1.8 - 3.4) LA dimension (AP) 2D 3.4 cm (2.3 - 3.8) LAd ISD 4CH 4.6 cm (2.9 - 5.3) LA ISD 4CH W 3.8 cm (2.5 - 4.5) Name Value Normal Range LA ESV SP 4CH (A/L) 38.92 ml - LA ESV SP 2CH (A/L) 50.02 ml - LA ESV BP (A/L) 46.36 ml - LA ESV BP (A/L) index 27 ml/m2 - LA ESV SP 4CH (MOD) 37.73 ml - LA ESV SP 2CH (MOD) 46.88 ml - Name Value Normal Range MV E-wave Vmax 0.7 m/sec - MV deceleration time 230 msec - MV A-wave Vmax 1.1 m/sec - MV E:A ratio 0.6 ratio - P. vein S-wave Vmax 0.4 m/sec - P. vein D-wave Vmax 0.3 m/sec - P. vein S:D Vmax ratio 1.4 ratio - P. vein A-wave duration 121 msec - LV septal e' Vmax 0.04 m/sec - LV lateral e' Vmax 0.05 m/sec - LV E:e' septal ratio 18.5 ratio - LV E:e' lateral ratio 14 ratio - Name Value Normal Range AV Vmax 1.3 m/sec - AV VTI 34.6 cm - AV peak gradient 7 mmHg - AV mean gradient 3.6 mmHg - LVOT diameter 2 cm - LVOT Vmax 1 m/sec - LVOT VTI 28 cm - LVOT peak gradient 4 mmHg - LVOT mean gradient 2.2 mmHg - KARIE (continuity Vmax) 2.5 cm2 - KARIE (continuity VTI) 2.5 cm2 - AR PHT 484.32 msec - AR peak gradient 57.05 mmHg - BENI Vmax 0.6 m/sec - Name Value Normal Range MV Vmax 1 m/sec - MV VTI 36 cm - MV peak gradient 4 mmHg - MV mean gradient 1.4 mmHg - MV PHT 118 msec - MVA (PHT) 1.9 cm2 - MVA (continuity VTI) 2.4 cm2 - Name Value Normal Range TR Vmax 3 m/sec - TR peak gradient 36 mmHg - RAP 3 mmHg - RVSP 39 mmHg - IVC diameter 2.4 cm - Name Value Normal Range PV Vmax 0.6 m/sec - PV peak gradient 1.4 mmHg - Wallmotion BAS Not Seen BA Not Seen BAL Not Seen GENEVA Not Seen BI Not Seen BIS Not Seen MAS Not Seen MA Not Seen MAL Not Seen MIL Not Seen UT Not Seen MIS Not Seen Hypokinetic AA Hypokinetic AL Hypokinetic AI Hypokinetic APEX Akinetic
[2018-05-23] MEDS: PTO:Latanoprost 0.005%* 2.5 ml BTL RIGHT EYE SCH (21:17)
[2018-05-24 05:10] LABS: ABS Basophils 0.1 10^3/ul (0-0.2); ABS Eosinophils 0.3 10^3/ul (0-0.6); ABS Lymphocytes 2.9 10^3/ul (1.0-4.8); ABS Neutrophils 2.8 10^3/ul (1.5-7.7); ABS Nucleated RBC 0 10^3/ul; Eosinophil % 4.1 %; Hematocrit 39 % (35-47); Hemoglobin 13.1 g/dl (12.0-16.0); Lymphocyte % 40.9 %; Mean Corpuscular HGB Conc 34 g/dl (31-36); Mean Corpuscular Hemoglobin 33 pg (27-31); Mean Corpuscular Volume 96 fL (80-97); Mean Platelet Volume 7.7 fL (7.4-10.4); Nucleated Red Blood Cells % 0.3; Platelet Count 309 10^3/ul (150-450); Red Cell Distribution Width 13 % (10.5-15); White Blood Count 7.1 10^3/ul (3.5-10.8)
[2018-05-24] MEDS: Omeprazole CAP* 20 MG PO SCH ×2 (08:32→22:42)
[2018-05-24] MEDS: Enoxaparin(*) 60 MG/0.6 ML SYR SUBCUT SCH ×2 (08:33→22:42)
[2018-05-24] MEDS: Lisinopril TAB* 5 MG PO SCH (08:33)
[2018-05-24] MEDS: OFLOXACIN 0.3% RIGHT EYE SCH ×4 (08:33→22:47)
[2018-05-24] MEDS: PTO:Timolol 0.5% OPTH.SOL* BTL RIGHT EYE SCH ×2 (08:33→22:47)
[2018-05-24] MEDS: Metoprolol Tartrate TAB* 25 MG PO SCH ×2 (08:33→22:43)
[2018-05-24] MEDS: prednisoLONE 1% OPHTH.SUSP* 5 ML OPHTH.SUSP RIGHT EYE SCH ×3 (08:34→22:50)
--- NOTE | 2018-05-24 15:00 | PN ---
Subjective Date of Service: 05/24/18 Interval History: Pt had an episode of " a small CP" today that resolved spontaneously, was brief , not elicited with exercise. Subsequently she ambulated down the hallway with no symptoms. Still c/o occasional epigastric "pressure" Objective Active Medications: Acetaminophen (Tylenol Tab*) 650 mg PO Q4H PRN PRN Reason: FEVER/PAIN Last Admin: 05/21/18 17:18 Dose: 650 mg Al Hydrox/Mg Hydrox/Simethicone (Maalox Plus*) 30 ml PO Q4H PRN PRN Reason: discomfort Calcium Carbonate (Tums*) 500 mg PO Q4H PRN PRN Reason: INDIGESTION Enoxaparin Sodium (Lovenox(*)) 50 mg SUBCUT Q12H [facility] Last Admin: 05/24/18 08:33 Dose: 50 mg Latanoprost (Xalatan 0.005%*) 1 drop RIGHT EYE BEDTIME [facility] Last Admin: 05/23/18 21:17 Dose: 1 drop Lisinopril (Prinivil Tab*) 2.5 mg PO DAILY [facility] Last Admin: 05/24/18 08:33 Dose: 2.5 mg Metoprolol Tartrate (Lopressor Tab*) 12.5 mg PO BID [facility] Last Admin: 05/24/18 08:33 Dose: 12.5 mg Morphine Sulfate (Morphine Vial*) 2 mg IV Q2H PRN PRN Reason: PAIN Last Admin: 05/21/18 17:57 Dose: 2 mg Ofloxacin (Ocuflox Opth 0.3%(Nf)) 1 drop RIGHT EYE QID [facility] Last Admin: 05/24/18 12:32 Dose: 1 drop Omeprazole (Prilosec Cap*) 20 mg PO BID [facility] Last Admin: 05/24/18 08:32 Dose: 20 mg Prednisolone Acetate (Pred Forte 1%*) 1 drop RIGHT EYE BID [facility] Last Admin: 05/24/18 08:40 Dose: Not Given Timolol Maleate (Timoptic 0.5% Opth*) 1 drop RIGHT EYE BID [facility] Last Admin: 05/24/18 08:33 Dose: 1 drop Vital Signs - 8 hr 05/24/18 05/24/18 05/24/18 08:00 08:15 10:50 Temperature 98.3 F Pulse Rate 60 67 Respiratory 18 18 Rate Blood Pressure 141/68 137/79 (mmHg) O2 Sat by Pulse 96 95 Oximetry 05/24/18 11:13 Temperature 97.5 F Pulse Rate 55 Respiratory 20 Rate Blood Pressure 116/45 (mmHg) O2 Sat by Pulse 92 Oximetry Oxygen Devices in Use Now: None Appearance: 83 yo f in nAD, aAOx3 Eyes: No Scleral Icterus, PERRLA Ears/Nose/Mouth/Throat: NL Teeth, Lips, Gums, Mucous Membranes Moist Neck: NL Appearance and Movements; NL JVP, Trachea Midline Respiratory: Symmetrical Chest Expansion and Respiratory Effort, Clear to Auscultation Cardiovascular: NL Sounds; No Murmurs; No JVD, RRR Abdominal: NL Sounds; No Tenderness; No Distention Lymphatic: No Cervical Adenopathy Extremities: No Edema, No Clubbing, Cyanosis Skin: No Rash or Ulcers, No Nodules or Sclerosis Neurological: Alert and Oriented x 3, NL Muscle Strength and Tone Result Diagrams: 05/24/18 04:53 05/24/18 04:53 Microbiology and Other Data: Microbiology 05/21/18 15:11 Nasal Screen MRSA (PCR) - Final Nasal Mrsa Not Detected Assess/Plan/Problems-Billing Assessment: 83 yo F with h/o astma, OA, blind in R eye presents with 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 Repeat Echo 05/23/18 showed EF 45% cont Lovenox BID to prevent clot formation at apex. cont ACEI and BB(lopressor lowered due to bradycardia 05/22/18) Due to QT prolongation(due to T morphology ) Zofran was d/c'd , todays' EKG shows improvement in QTc Epigastric pressure may be angina equivalent , but does not get worse with exercise. CT abd showed possible gastric thickening, ? gastritis. (2) Hypoxemia Comment: resolved. (3) DVT prophylaxis Comment: lovenox Status and Disposition: Inpatient
--- NOTE | 2018-05-24 16:37 | PN ---
Subjective Date of Service: 05/24/18 - CC: chest and abdominal pain Interval History: 05/21/2018 admission and consult PMD: Dr. Mcgee Service: Hospitalist CC: Chest and epigastric pain HPI Josefa Mina is an 83 year old woman who was admitted with an ACS-like presentation and found with takotsubo cardiomyopathy. Denies stress, but several recent stressors, 's health, pet , IRS erroneous high bill. The patient is walking well, close to baseline. Occasional mild CP. Still has upper abdominal pain, vague on area, includes RUQ, no meal relationship. Belching today per and this has been a recent issue. Mild constipation on history. Medications Active Medications: Acetaminophen (Tylenol Tab*) 650 mg PO Q4H PRN PRN Reason: FEVER/PAIN Last Admin: 05/21/18 17:18 Dose: 650 mg Al Hydrox/Mg Hydrox/Simethicone (Maalox Plus*) 30 ml PO Q4H PRN PRN Reason: discomfort Calcium Carbonate (Tums*) 500 mg PO Q4H PRN PRN Reason: INDIGESTION Enoxaparin Sodium (Lovenox(*)) 50 mg SUBCUT Q12H [facility] Last Admin: 05/24/18 08:33 Dose: 50 mg Latanoprost (Xalatan 0.005%*) 1 drop RIGHT EYE BEDTIME [facility] Last Admin: 05/23/18 21:17 Dose: 1 drop Lisinopril (Prinivil Tab*) 2.5 mg PO DAILY [facility] Last Admin: 05/24/18 08:33 Dose: 2.5 mg Metoprolol Tartrate (Lopressor Tab*) 12.5 mg PO BID [facility] Last Admin: 05/24/18 08:33 Dose: 12.5 mg Morphine Sulfate (Morphine Vial*) 2 mg IV Q2H PRN PRN Reason: PAIN Last Admin: 05/21/18 17:57 Dose: 2 mg Ofloxacin (Ocuflox Opth 0.3%(Nf)) 1 drop RIGHT EYE QID [facility] Last Admin: 05/24/18 12:32 Dose: 1 drop Omeprazole (Prilosec Cap*) 20 mg PO BID [facility] Last Admin: 05/24/18 08:32 Dose: 20 mg Prednisolone Acetate (Pred Forte 1%*) 1 drop RIGHT EYE BID [facility] Last Admin: 05/24/18 08:40 Dose: Not Given Timolol Maleate (Timoptic 0.5% Opth*) 1 drop RIGHT EYE BID [facility] Last Admin: 05/24/18 08:33 Dose: 1 drop Objective Vital Signs: Temp Pulse Resp BP Pulse Ox 97.7 F 59 16 138/62 95 05/24/18 15:07 05/24/18 15:07 05/24/18 15:07 05/24/18 15:07 05/24/18 15:07 Oxygen Devices in Use Now: None Appearance: elderly female, walking in room in NAD. Eyes: No Scleral Icterus, PERRLA Ears/Nose/Mouth/Throat: Clear Oropharnyx, Mucous Membranes Moist Neck: NL Appearance and Movements; NL JVP, Trachea Midline Respiratory: Symmetrical Chest Expansion and Respiratory Effort, Clear to Auscultation Cardiovascular: NL Sounds; No Murmurs; No JVD, RRR, No Edema Abdominal: NL Sounds; No Tenderness; No Distention Extremities: No Edema Skin: No Rash or Ulcers Neurological: Alert and Oriented x 3, NL Gait Lines/Tubes/Other Access: Clean, Dry and Intact Peripheral IV Laboratory Results: 05/24/18 04:53 05/24/18 04:53 INR (Anticoag Therapy) 0.85 (0.77-1.02) 05/21/18 12:08 APTT 30.2 seconds (26.0-36.3) 05/21/18 12:08 Total Bilirubin 0.40 mg/dL (0.2-1.0) 05/24/18 04:53 AST 22 U/L (13-39) 05/24/18 04:53 ALT 11 U/L (7-52) 05/24/18 04:53 Alkaline Phosphatase 57 U/L (34-104) 05/24/18 04:53 CK-MB (CK-2) 4.9 ng/mL (0.6-6.3) 05/21/18 12:08 B-Natriuretic Peptide 114 pg/mL (<=100) H 05/21/18 12:08 Total Protein 6.3 g/dL (6.4-8.9) L 05/24/18 04:53 Albumin 3.6 g/dL (3.2-5.2) 05/24/18 04:53 Globulin 2.7 g/dL (2-4) 05/24/18 04:53 Albumin/Globulin Ratio 1.3 (1-3) 05/24/18 04:53 TSH 4.24 mcIU/mL (0.34-5.60) 05/21/18 12:08 05/21/18 05/21/18 05/21/18 12:08 15:37 21:20 Troponin I 0.28 H* 2.69 H* 1.40 H* Diagnostic Imagin05/21/2018: CXR no acute disease Cardiac catheterization 05/21/18: apical ballooning, EF 35%, normal coronary arteries. ECHO 05/23/18: EF 45-50%, mild/mod AI, MR, TR. CT abdomen: +'tics, no GB issues, circumferential antral thickening, possible gastritus, fatty liver. EKG Data: ekg 05/21/2018: NSR, LAD, < 1 mm FAVIOLA v4-v6 unchanged on repeat and new since 2016 ECG 05/24/18: NSR 58 bpm, severe biphasic and inverted T waves precordial leads , QT 520 ms, QTc 511 ms. Assessment/Plan 83 yo prsenting with acute onset CP, abnormal ECG and elevated troponins, normal C's on cath, Vgram showed apical ballooning. Persistent CP and GI symptoms of upper abnominal pain and belching. 1. Takotsubo cardiomyopathy, LVEF 35% improved to 45-50%. Continue BB and ACEI, titrate up if vitals allow. Possible anxiety she is not conscious of, defer to others to address, but recommend something to prevent recurrent events. Check ESR/CRP in case this is a myocarditis and not Takasubo's. 2. QT prolongation: Beta eric, monitor. May improve with time. Aware of plan for [employer] external defibrillator, but unclear if she will qualify with improved EF. 2. GI c/o. As discussed, consider treating constipation. If gastritis ? PPI empirically and/or GI assist/evaluate for possible endoscopy for symptoms and abnormal CT scan. Dietary changes might be needed, the patient volunteered that she was eating quite a bit of pork at home.
[2018-05-24] MEDS ORDERED: Docusate CAP* 100 MG PO PRN (16:43)
[2018-05-24] MEDS ORDERED: Simethicone TAB* 80 MG TAB.CHEW PO PRN (16:44)
[2018-05-24] MEDS: Polyethylene Glycol 3350* 17 GM PACKET PO SCH (22:43)
[2018-05-24] MEDS: PTO:Latanoprost 0.005%* 2.5 ml BTL RIGHT EYE SCH (22:47)
[2018-05-25] MEDS: PTO:Timolol 0.5% OPTH.SOL* BTL RIGHT EYE SCH (09:47)
[2018-05-25] MEDS: OFLOXACIN 0.3% RIGHT EYE SCH ×2 (09:48→12:15)
[2018-05-25] MEDS: prednisoLONE 1% OPHTH.SUSP* 5 ML OPHTH.SUSP RIGHT EYE SCH (09:48)
[2018-05-25] MEDS: Metoprolol Tartrate TAB* 25 MG PO SCH (09:49)
[2018-05-25] MEDS: Omeprazole CAP* 20 MG PO SCH (09:49)
[2018-05-25] MEDS: Polyethylene Glycol 3350* 17 GM PACKET PO SCH (09:50)
[2018-05-25] MEDS: Enoxaparin(*) 60 MG/0.6 ML SYR SUBCUT SCH (09:52)
[2018-05-25] MEDS: Lisinopril TAB* 5 MG PO SCH (11:05)
[2018-05-25 16:12] VITALS: BP 132/55
--- NOTE | 2018-05-26 03:58 | DS ---
CC: Dr. Mcgee; Dr. Harper; Dr. Velásquez; Dr. Lanier.* DISCHARGE SUMMARY: DATE OF ADMISSION: 05/21/18 DATE OF DISCHARGE: 05/25/18 PRIMARY CARE PROVIDER: Dr. Mcgee. DISCHARGE DIAGNOSES: 1. 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 Lanier on 05/21/18, that showed no significant coronary artery disease, but presence of significant left ventricular systolic dysfunction suggesting takotsubo. 2. Prolonged QT interval that had been improving during the patient's hospital stay. 3. The patient had been complaining of epigastric discomfort/pressure with the CT of the abdomen and pelvis suggesting possibility of gastritis. SECONDARY DIAGNOSES: 1. History of osteoarthritis. 2. History of asthma. 3. History of cervical disc disease. 4. 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 5. History of multiple eye surgeries in the past. 6. Status post hip replacement surgery in the past and rotator cuff injury in the past. MEDICATIONS AT DISCHARGE: Include: 1. Estradiol 0.3 mg daily. 2. Latanoprost 1 drop right eye at bedtime. 3. Nabumetone 500 mg b.i.d. p.r.n. 4. Ofloxacin 1 drop right eye 4 times a day. 5. Timolol eye drop 0.5% one drop right eye b.i.d. 6. Lisinopril 2.5 mg daily. 7. Metoprolol tartrate 12.5 mg b.i.d. 8. Omeprazole 20 mg b.i.d. CONSULTATIONS DURING THE HOSPITAL STAY: Included Dr. Lanier from Interventional Cardiology and Dr. Madison from Cardiology. LABORATORY DATA AND STUDIES PERFORMED DURING THE HOSPITAL STAY: Included: On , white blood cell count of 7.1, hemoglobin of 13.1, hematocrit of 39, and platelets of 309. Sodium was 137, potassium 4.1, chloride 104, carbon- dioxide 28, BUN 21, creatinine of 0.74. Liver function tests were unremarkable at admission. The patient's troponin peaked at 2.6 on 05/21/18. Most recent transthoracic echocardiogram obtained on 05/23/18 showed EF of 45% to 50% with mildly decreased left ventricular systolic function and focal wall motion abnormality present. The apical septal, apical anterior, apical lateral , and apical inferior wall segments are hypokinetic. There is trace to mild aortic regurgitation, trace mitral regurgitation, moderate tricuspid regurgitation, and mild pulmonary hypertension. CT of the abdomen and pelvis obtained on 05/23/18. Impression: "Given the clinical complaints and epigastric abdominal pain, the noted potential mild circumferential mural thickening at the gastric antrum, may reflect presence of gastritis. Correlate with clinical assessment and consider upper GI series or endoscopy for further evaluation if deemed appropriate. Hepatosteatosis. Diverticulosis of the sigmoid colon without findings of acute diverticulitis." Cardiac catheterization performed by Dr. Lanier on 05/21/18 showed no significant coronary artery disease, but presence of significant left ventricular systolic dysfunction suggesting takotsubo syndrome. HOSPITALIZATION COURSE: Josefa Mina is an 83-year-old female who presented to the hospital on 05/21/18 with chest pain. The patient was noted to have marked abnormalities on the EKG showing ST elevation in anterolateral leads. The patient was then taken to the cardiac cath tech and was noted to have unremarkable coronary artery disease, but apical dysfunction consistent with takotsubo syndrome. Further, when we were discussing with the patient possibility of stressors, the patient stated that she just received a bill from [employer] for $40, 000 but she stated that she did not worry about it too much because she knew that there was something wrong with the decimal point on the IRS evaluation and she was suppose to submit all the documentation to "have it fixed". In addition to that, she noted that her daughter's dog a week prior and she had to drive her daughter to the pet hospital to have the dog put to sleep. She also noted that approximately 6 weeks prior the patient's needed to undergo a cardioversion for atrial fibrillation, he had gotten a heart block and needed emergent cardiac pacemaker placement, which did stress her "a little ". Overall, the patient appears to be a very stoic lady and denies any of those situations to cause a stress enough to have "a heart break". Nevertheless , the patient was diagnosed with takotsubo syndrome. Her troponin was elevated with peak of over 2 as mentioned above. She has significant apical dysfunction and initially was noted to be approximately 30% to 35%. She was placed on anticoagulation during the hospital stay with Lovenox and that was discontinued by the time of discharge. She had QT prolongation that started resolving by the time of discharge with most recent QTc on the day of discharge noted to be 474 msec. By the time of discharge, she complained of no further chest pain and no chest pain was elicited with ambulation. Nevertheless, she continues to have problems with epigastric discomfort and pressure that she feels in her epigastrium underneath her xiphoid. She was not tender in the area indicated. A CT of the abdomen and pelvis noted that the patient may have gastritis. She was placed on omeprazole and still occasionally has the sensation of pressure in the area, but once again, we are not sure at this point if this is related to her angina symptoms. With the overall improvement, the patient's anticoagulation was discontinued and she was placed on a beta eric and QUINCY inhibitor. She is going to be discharged home with the recommendation to follow up with Dr. Niranjan Velásquez on 06/08/18 for cardiology followup and Dr. Mcgee in approximately 4 to 7 days. The patient was given instructions of postcardiac catheterization, limitations of exercise and was also asked to not perform any strenuous exercise until she sees Dr. Velásquez in the office for followup. PHYSICAL EXAMINATION AT THE TIME OF DISCHARGE: Blood pressure of 125/59, heart rate of 54 and regular, respiratory rate 16, and oxygen saturation 97% on room air, and temperature 98.0. General: The patient is a very pleasant 83-year- old female who is in no acute distress. Alert, awake, and oriented x3. HEENT: Head atraumatic and normocephalic. Eyes; pupils are equal, round, and reactive to light and accommodation. Oropharynx clear. Mucosa moist. Neck: Supple. No JVD. No bruits bilaterally. Cardiovascular: Regular, rate, and rhythm. No murmur. Respiratory: Clear to auscultation bilaterally. Abdomen: Soft and nontender. Bowel sounds present in all 4 quadrants. Extremities: There is no edema. Pulses are +2 bilaterally. No clubbing or cyanosis. Neuro Evaluation: Speech clear. Cranial nerves II through XII grossly intact. Motor strength is 5/5 bilaterally. Please note that this is a short summary of the patient's hospitalization. Please refer to further medical records for details. TIME SPENT: Approximately 40 minutes was spent on the patient's discharge. [id number]/[facility] #: [id number] [facility]
== END 2018-05-25 17:10 | disposition home or self-care (01) | DRG 287 ==
LOC: ED 11:22 → CHICATH 13:33 → ICU 15:09 → MEDTELE 05-23 13:01
PROVIDERS: ADMIT Internal Medicine Cardiovascular Disease; ATTEND Internal Medicine
PROC: B2111ZZ Fluoroscopy of Multiple Coronary Arteries using Low Osmolar Contrast (ICD-10-PCS; 2018-05-21)
PROC: B2151ZZ Fluoroscopy of Left Heart using Low Osmolar Contrast (ICD-10-PCS; 2018-05-21)
PROC: 4A023N7 Measurement of Cardiac Sampling and Pressure, Left Heart, Percutaneous Approach (ICD-10-PCS; principal; 2018-05-21 14:00)
DX: I51.81 Takotsubo syndrome (principal); I24.9 Acute ischemic heart disease, unspecified; M19.90 Unspecified osteoarthritis, unspecified site; J45.909 Unspecified asthma, uncomplicated; M50.30 Other cervical disc degeneration, unspecified cervical region; H54.61 Unqualified visual loss, right eye, normal vision left eye; R60.0 Localized edema; R09.02 Hypoxemia; Z96.642 Presence of left artificial hip joint; K29.70 Gastritis, unspecified, without bleeding; I27.20 Pulmonary hypertension, unspecified; I08.3 Combined rheumatic disorders of mitral, aortic and tricuspid valves; K76.0 Fatty (change of) liver, not elsewhere classified; K57.30 Diverticulosis of large intestine without perforation or abscess without bleeding; I48.91 Unspecified atrial fibrillation; I45.9 Conduction disorder, unspecified; Z90.710 Acquired absence of both cervix and uterus; Z82.49 Family history of ischemic heart disease and other diseases of the circulatory system; Z98.49 Cataract extraction status, unspecified eye; Z94.7 Corneal transplant status; Z83.3 Family history of diabetes mellitus; Z88.8 Allergy status to other drugs, medicaments and biological substances; I45.81 Long QT syndrome
CPT/HCPCS: 36415; 71045; 74177; 80048; 80053; 82550; 82553; 83605; 83735; 83874; 83880; 84443; 84484; 85025; 85347; 85610; 85652; 85730; 86140; 87641; 93005; 93306; 93458; 99285; A9270-GY; J1644; J1650; J2250; J2270; J2405; Q9967

== ENCOUNTER 2020-05-19 16:05 | Inpatient (IN) ==
[2020-05-19 20:09] LABS: ABS Basophils 0.1 10^3/ul (0-0.2); ABS Eosinophils 0.2 10^3/ul (0-0.6); ABS Lymphocytes 1.8 10^3/ul (1.0-4.8); ABS Monocytes 1.5 10^3/ul (0-0.8); ABS Neutrophils 4.8 10^3/ul (1.5-7.7); Eosinophil % 2.2 %; Hematocrit 40 % (35-47); Hemoglobin 13.5 g/dL (12.0-16.0); Lymphocyte % 22.1 %; Mean Corpuscular HGB Conc 33 g/dL (31-36); Mean Corpuscular Hemoglobin 32 pg (27-31); Mean Corpuscular Volume 95 fL (80-97); Mean Platelet Volume 7.1 fL (7.4-10.4); Nucleated Red Blood Cells % 0.1; Platelet Count 442 10^3/uL (150-450); Red Blood Count 4.26 10^6 /uL (3.70-4.87); Red Cell Distribution Width 14 % (10-15); White Blood Count 8.3 10^3/uL (3.5-10.8)
[2020-05-19 20:19] LABS: INR 1.08 (0.82-1.09)
[2020-05-19 20:27] LABS: Albumin/Globulin Ratio 1.3 (1-3); BUN/Creatinine Ratio 34.2 (8-20); Calcium 9.9 mg/dL (8.6-10.3); EGFR African American 87.5 (>60); EGFR Non-African American 72.3 (>60); Magnesium 1.9 mg/dL (1.9-2.7); Potassium 4.1 mmol/L (3.5-5.0); Total Bilirubin 0.5 mg/dL (0.2-1.0)
[2020-05-19 20:30] LABS: Troponin I 0.01 ng/mL (<0.03)
[2020-05-19] MEDS ORDERED: Ondansetron 4 mg VIAL 2 MG/ML 2 ml VIAL IV ONE (21:07)
[2020-05-19] MEDS ORDERED: NS 0.9% 1000 ml BAG 1,000 ML IV ONE (21:07)
[2020-05-19] MEDS ORDERED: Morphine 4 MG/ML VIAL (1 ml) IV ONE (21:07)
[2020-05-19 21:16] LABS: Urine Appearance Cloudy; Urine Bilirubin Negative (Negative); Urine Blood Negative (Negative); Urine Color Amber; Urine Glucose Negative (Negative); Urine Ketones Trace (Negative); Urine Nitrite Negative (Negative); Urine Protein 2+(100 mg/dL) (Negative); Urine Urobilinogen Negative (Negative)
[2020-05-19 21:30] LABS: Urine Bacteria 3+ (Absent); Urine Red Blood Cell Trace(0-2/hpf) (Absent); Urine Squamous Epithelial Cell Present (Absent); Urine White Blood Cell 3+(>20/hpf) (Absent)
[2020-05-19] MEDS ORDERED: diPHENhydraMINE 25 mg TAB PO PRN (22:00)
[2020-05-20] MEDS: Heparin 5000 UNITS/ML 1 mL VIAL SUBCUT SCH ×3 (01:05→17:07)
[2020-05-20] MEDS: Morphine 2 MG/ML SYRINGE IV PRN ×2 (08:15→17:07)
[2020-05-20] MEDS: Timolol 0.5% OPTH.SOL BTL BOTH EYES SCH ×2 (08:19→19:44)
[2020-05-20] MEDS: Latanoprost 0.005% 2.5 ml BTL BOTH EYES SCH (08:19)
[2020-05-20] MEDS ORDERED: Estradiol 0.5 mg TAB (NF) PO SCH (09:00)
[2020-05-20 11:40] LABS: Uric Acid 8.6 mg/dL (2.3-6.6)
[2020-05-20] MEDS ORDERED: Midazolam 10 mg/10 ml VIAL 1 mg/ml 10 ml VIAL (10 mg) ONE (14:54)
[2020-05-20] MEDS ORDERED: Enoxaparin 40 MG/0.4 ML SYR SUBCUT SCH (19:30)
[2020-05-21] MEDS: Morphine 2 MG/ML SYRINGE IV PRN (07:39)
[2020-05-21] MEDS: Latanoprost 0.005% 2.5 ml BTL BOTH EYES SCH (08:44)
[2020-05-21] MEDS: Timolol 0.5% OPTH.SOL BTL BOTH EYES SCH (08:50)
[2020-05-21 11:49] VITALS: BP 112/55
[2020-05-30 12:25] LABS: BLYM Result Summary Negative
== END 2020-05-21 16:20 | disposition home or self-care (01) ==
LOC: MEDTELE 16:05 → ED 16:05 → MEDTELE 05-20 00:44
PROVIDERS: ADMIT Hospitalist; ATTEND Student in an Organized Health Care Education/Training Program

== ENCOUNTER 2021-01-09 20:04 | Inpatient (IN) ==
[2021-01-10 00:34] LABS: ABS Eosinophils 0.1 10^3/ul (0-0.6); ABS Monocytes 1.3 10^3/ul (0-0.8); ABS Neutrophils 7.7 10^3/ul (1.5-7.7); Eosinophil % 1.1 %; Hematocrit 34 % (35-47); Hemoglobin 11.3 g/dL (12.0-16.0); Lymphocyte % 9.4 %; Mean Corpuscular HGB Conc 33 g/dL (31-36); Mean Corpuscular Hemoglobin 32 pg (27-31); Mean Corpuscular Volume 97 fL (80-97); Mean Platelet Volume 7.5 fL (7.4-10.4); Platelet Count 230 10^3/uL (150-450); Red Cell Distribution Width 15 % (10-15); White Blood Count 10.2 10^3/uL (3.5-10.8)
[2021-01-10 00:37] LABS: INR 0.95 (0.86-1.15)
[2021-01-10 00:38] LABS: Activated Partial Thrombo Time 30.6 seconds (26.0-38.0)
[2021-01-10 00:44] LABS: Albumin/Globulin Ratio 1.5 (1-3); EGFR African American 68.5 (>60); EGFR Non-African American 56.6 (>60); Globulin 2.7 g/dL (2-4); Potassium 4.2 mmol/L (3.5-5.0); Total Bilirubin 0.4 mg/dL (0.2-1.0); Total Protein 6.7 g/dL (6.4-8.9)
[2021-01-10] MEDS: Morphine 2 MG/ML SYRINGE IV PRN ×2 (06:00→10:42)
[2021-01-10] MEDS: NS 0.9% 1000 ml BAG 1,000 ML IV SCH ×2 (06:03→09:10)
[2021-01-10] MEDS: Heparin 5000 UNITS/ML 1 mL VIAL SUBCUT SCH ×3 (07:49→21:22)
[2021-01-10 08:58] LABS: ABS Eosinophils 0.1 10^3/ul (0-0.6); ABS Lymphocytes 0.7 10^3/ul (1.0-4.8); ABS Monocytes 1.2 10^3/ul (0-0.8); Hematocrit 31 % (35-47); Hemoglobin 10.5 g/dL (12.0-16.0); Lymphocyte % 11.2 %; Mean Corpuscular HGB Conc 33 g/dL (31-36); Mean Corpuscular Hemoglobin 32 pg (27-31); Mean Corpuscular Volume 97 fL (80-97); Mean Platelet Volume 6.9 fL (7.4-10.4); Platelet Count 182 10^3/uL (150-450); Red Blood Count 3.23 10^6 /uL (3.70-4.87); Red Cell Distribution Width 15 % (10-15); White Blood Count 5.9 10^3/uL (3.5-10.8)
[2021-01-10] MEDS: CMC:Estradiol 1 mg TAB (NF) PO SCH (10:39)
[2021-01-10] MEDS: Timolol 0.5% OPTH.SOL BTL RIGHT EYE SCH ×2 (10:39→19:43)
[2021-01-10] MEDS: Polyethylene Glycol 3350 17 GM PACKET PO PRN (10:42)
[2021-01-10] MEDS: OFLOXACIN 0.3% BOTH EYES SCH ×4 (10:43→19:43)
[2021-01-10] MEDS: Latanoprost 0.005% 2.5 ml BTL RIGHT EYE SCH (19:43)
[2021-01-11] MEDS: Heparin 5000 UNITS/ML 1 mL VIAL SUBCUT SCH ×3 (04:53→20:59)
[2021-01-11 05:22] LABS: ABS Eosinophils 0.1 10^3/ul (0-0.6); ABS Lymphocytes 0.7 10^3/ul (1.0-4.8); ABS Neutrophils 2.4 10^3/ul (1.5-7.7); Eosinophil % 3.4 %; Hematocrit 29 % (35-47); Hemoglobin 9.9 g/dL (12.0-16.0); Lymphocyte % 16.6 %; Mean Corpuscular HGB Conc 34 g/dL (31-36); Mean Corpuscular Hemoglobin 32 pg (27-31); Mean Corpuscular Volume 96 fL (80-97); Mean Platelet Volume 7.6 fL (7.4-10.4); Nucleated Red Blood Cells % 0.1; Platelet Count 185 10^3/uL (150-450); Red Blood Count 3.05 10^6 /uL (3.70-4.87); Red Cell Distribution Width 15 % (10-15); White Blood Count 4.3 10^3/uL (3.5-10.8)
[2021-01-11] MEDS: OFLOXACIN 0.3% BOTH EYES SCH ×4 (08:54→20:59)
[2021-01-11] MEDS: Timolol 0.5% OPTH.SOL BTL RIGHT EYE SCH ×2 (08:55→20:58)
[2021-01-11] MEDS: CMC:Estradiol 1 mg TAB (NF) PO SCH (08:55)
[2021-01-11] MEDS ORDERED: diPHENhydraMINE 25 mg TAB PO PRN (11:42)
[2021-01-11] MEDS ORDERED: diPHENhydraMINE 25 mg TAB ONE (11:47)
[2021-01-11] MEDS: Morphine 2 MG/ML SYRINGE IV PRN (12:02)
[2021-01-11] MEDS: Latanoprost 0.005% 2.5 ml BTL RIGHT EYE SCH (20:59)
[2021-01-12] MEDS: Heparin 5000 UNITS/ML 1 mL VIAL SUBCUT SCH ×3 (05:48→22:02)
[2021-01-12 06:31] LABS: ABS Eosinophils 0.2 10^3/ul (0-0.6); ABS Lymphocytes 0.8 10^3/ul (1.0-4.8); ABS Monocytes 1.1 10^3/ul (0-0.8); ABS Neutrophils 2.7 10^3/ul (1.5-7.7); Eosinophil % 4.1 %; Hematocrit 28 % (35-47); Hemoglobin 9.5 g/dL (12.0-16.0); Lymphocyte % 17.1 %; Mean Corpuscular HGB Conc 34 g/dL (31-36); Mean Corpuscular Hemoglobin 32 pg (27-31); Mean Corpuscular Volume 96 fL (80-97); Mean Platelet Volume 7.6 fL (7.4-10.4); Platelet Count 184 10^3/uL (150-450); Red Blood Count 2.97 10^6 /uL (3.70-4.87); Red Cell Distribution Width 15 % (10-15); White Blood Count 4.9 10^3/uL (3.5-10.8)
[2021-01-12] MEDS: Polyethylene Glycol 3350 17 GM PACKET PO PRN ×2 (08:50→08:52)
[2021-01-12] MEDS: OFLOXACIN 0.3% BOTH EYES SCH ×4 (08:50→20:37)
[2021-01-12] MEDS: Timolol 0.5% OPTH.SOL BTL RIGHT EYE SCH ×2 (08:51→20:37)
[2021-01-12] MEDS: CMC:Estradiol 1 mg TAB (NF) PO SCH (08:53)
[2021-01-12] MEDS ORDERED: Magnesium Hydroxide LIQ 30 ML UDC PO PRN (09:18)
[2021-01-12] MEDS ORDERED: Sodium Phosphate ADULT ENEMA 133 ML BTL PR PRN (09:18)
[2021-01-12] MEDS: Magnesium Hydroxide LIQ 30 ML UDC PO SCH (20:36)
[2021-01-12] MEDS: Latanoprost 0.005% 2.5 ml BTL RIGHT EYE SCH (20:37)
[2021-01-12] MEDS ORDERED: Senna TAB 8.6 mg TAB PO SCH (21:00)
[2021-01-13] MEDS: Heparin 5000 UNITS/ML 1 mL VIAL SUBCUT SCH (05:30)
[2021-01-13 05:58] LABS: ABS Eosinophils 0.2 10^3/ul (0-0.6); ABS Lymphocytes 0.7 10^3/ul (1.0-4.8); ABS Neutrophils 2.3 10^3/ul (1.5-7.7); Eosinophil % 4.2 %; Hematocrit 28 % (35-47); Hemoglobin 9.7 g/dL (12.0-16.0); Lymphocyte % 17.4 %; Mean Corpuscular HGB Conc 34 g/dL (31-36); Mean Corpuscular Hemoglobin 33 pg (27-31); Mean Corpuscular Volume 95 fL (80-97); Platelet Count 193 10^3/uL (150-450); Red Blood Count 2.97 10^6 /uL (3.70-4.87); Red Cell Distribution Width 15 % (10-15); White Blood Count 4.3 10^3/uL (3.5-10.8)
[2021-01-13 07:43] VITALS: BP 123/71
[2021-01-13] MEDS: OFLOXACIN 0.3% BOTH EYES SCH (08:10)
[2021-01-13] MEDS: CMC:Estradiol 1 mg TAB (NF) PO SCH (08:10)
[2021-01-13] MEDS: Timolol 0.5% OPTH.SOL BTL RIGHT EYE SCH (08:13)
[2021-01-13] MEDS: Magnesium Hydroxide LIQ 30 ML UDC PO SCH (08:14)
== END 2021-01-13 08:50 | DRG 534 ==
LOC: ED 20:04 → SSU 01-10 01:32
PROVIDERS: ADMIT Hospitalist; ATTEND Hospitalist

== ENCOUNTER 2021-01-13 08:12 | Inpatient (IN) ==
[2021-01-13] MEDS ORDERED: Magnesium Hydroxide LIQ 30 ML UDC PO PRN (11:46)
[2021-01-13] MEDS: OFLOXACIN 0.3% BOTH EYES SCH ×3 (13:02→19:53)
[2021-01-13] MEDS: Heparin 5000 UNITS/ML 1 mL VIAL SUBCUT SCH ×2 (14:09→20:51)
[2021-01-13] MEDS ORDERED: Polyethylene Glycol 3350 17 GM PACKET PO PRN (17:25)
[2021-01-13] MEDS: Senna TAB 8.6 mg TAB PO PRN (19:53)
[2021-01-13] MEDS: Timolol 0.5% OPTH.SOL BTL RIGHT EYE SCH (21:02)
[2021-01-13] MEDS: Latanoprost 0.005% 2.5 ml BTL RIGHT EYE SCH (21:03)
[2021-01-14] MEDS: Heparin 5000 UNITS/ML 1 mL VIAL SUBCUT SCH ×3 (05:32→21:03)
[2021-01-14 05:58] LABS: ABS Eosinophils 0.2 10^3/ul (0-0.6); ABS Lymphocytes 0.9 10^3/ul (1.0-4.8); ABS Monocytes 1.1 10^3/ul (0-0.8); ABS Neutrophils 2.7 10^3/ul (1.5-7.7); Eosinophil % 4.7 %; Hematocrit 29 % (35-47); Hemoglobin 9.8 g/dL (12.0-16.0); Lymphocyte % 18.1 %; Mean Corpuscular HGB Conc 33 g/dL (31-36); Mean Corpuscular Hemoglobin 32 pg (27-31); Mean Corpuscular Volume 96 fL (80-97); Mean Platelet Volume 7.1 fL (7.4-10.4); Platelet Count 216 10^3/uL (150-450); Red Blood Count 3.05 10^6 /uL (3.70-4.87); Red Cell Distribution Width 15 % (10-15)
[2021-01-14 06:17] LABS: Albumin 3.6 g/dL (3.2-5.2); Albumin/Globulin Ratio 1.4 (1-3); Calcium 9.2 mg/dL (8.6-10.3); EGFR African American 73.9 (>60); EGFR Non-African American 61.1 (>60); Globulin 2.6 g/dL (2-4); Potassium 4.4 mmol/L (3.5-5.0); Total Bilirubin 0.6 mg/dL (0.2-1.0); Total Protein 6.2 g/dL (6.4-8.9)
[2021-01-14] MEDS: OFLOXACIN 0.3% BOTH EYES SCH ×4 (09:13→20:47)
[2021-01-14] MEDS: CMCS: Estradiol 1 mg TAB (NF) PO SCH (09:13)
[2021-01-14] MEDS: Timolol 0.5% OPTH.SOL BTL RIGHT EYE SCH ×2 (09:14→20:58)
[2021-01-14] MEDS: Latanoprost 0.005% 2.5 ml BTL RIGHT EYE SCH (20:58)
[2021-01-15] MEDS: Heparin 5000 UNITS/ML 1 mL VIAL SUBCUT SCH ×3 (06:12→21:19)
[2021-01-15] MEDS: CMCS: Estradiol 1 mg TAB (NF) PO SCH (09:18)
[2021-01-15] MEDS: OFLOXACIN 0.3% BOTH EYES SCH ×4 (09:19→21:26)
[2021-01-15] MEDS: Timolol 0.5% OPTH.SOL BTL RIGHT EYE SCH ×2 (09:20→21:20)
[2021-01-15] MEDS: diPHENhydraMINE 25 mg TAB PO PRN ×2 (14:50→21:27)
[2021-01-15] MEDS: Latanoprost 0.005% 2.5 ml BTL RIGHT EYE SCH (21:31)
[2021-01-16] MEDS: Heparin 5000 UNITS/ML 1 mL VIAL SUBCUT SCH ×3 (05:18→22:43)
[2021-01-16] MEDS: Timolol 0.5% OPTH.SOL BTL RIGHT EYE SCH ×2 (08:56→20:18)
[2021-01-16] MEDS: OFLOXACIN 0.3% BOTH EYES SCH ×4 (08:57→20:25)
[2021-01-16] MEDS: diPHENhydraMINE 25 mg TAB PO PRN (09:03)
[2021-01-16] MEDS: CMCS: Estradiol 1 mg TAB (NF) PO SCH (10:56)
[2021-01-16] MEDS: Latanoprost 0.005% 2.5 ml BTL RIGHT EYE SCH (20:25)
[2021-01-17] MEDS: Heparin 5000 UNITS/ML 1 mL VIAL SUBCUT SCH ×3 (05:53→21:54)
[2021-01-17] MEDS: Timolol 0.5% OPTH.SOL BTL RIGHT EYE SCH ×2 (08:42→21:53)
[2021-01-17] MEDS: CMCS: Estradiol 1 mg TAB (NF) PO SCH (08:42)
[2021-01-17] MEDS: OFLOXACIN 0.3% BOTH EYES SCH ×4 (08:43→21:53)
[2021-01-17] MEDS: diPHENhydraMINE 25 mg TAB PO PRN (21:49)
[2021-01-17] MEDS: Latanoprost 0.005% 2.5 ml BTL RIGHT EYE SCH (21:58)
[2021-01-18] MEDS: Heparin 5000 UNITS/ML 1 mL VIAL SUBCUT SCH ×3 (06:03→23:34)
[2021-01-18] MEDS: Timolol 0.5% OPTH.SOL BTL RIGHT EYE SCH ×2 (09:21→20:27)
[2021-01-18] MEDS: CMCS: Estradiol 1 mg TAB (NF) PO SCH (09:21)
[2021-01-18] MEDS: OFLOXACIN 0.3% BOTH EYES SCH ×4 (09:21→20:32)
[2021-01-18] MEDS: diPHENhydraMINE 25 mg TAB PO PRN (17:34)
[2021-01-18] MEDS: Latanoprost 0.005% 2.5 ml BTL RIGHT EYE SCH (23:15)
[2021-01-19] MEDS: diPHENhydraMINE 25 mg TAB PO PRN ×2 (01:15→20:50)
[2021-01-19] MEDS: Heparin 5000 UNITS/ML 1 mL VIAL SUBCUT SCH ×3 (05:52→22:37)
[2021-01-19] MEDS: CMCS: Estradiol 1 mg TAB (NF) PO SCH (09:08)
[2021-01-19] MEDS: Timolol 0.5% OPTH.SOL BTL RIGHT EYE SCH ×2 (09:10→20:49)
[2021-01-19] MEDS: OFLOXACIN 0.3% BOTH EYES SCH ×4 (09:10→20:49)
[2021-01-19] MEDS: Latanoprost 0.005% 2.5 ml BTL RIGHT EYE SCH (20:49)
[2021-01-20] MEDS: Heparin 5000 UNITS/ML 1 mL VIAL SUBCUT SCH ×3 (06:02→21:29)
[2021-01-20] MEDS: Timolol 0.5% OPTH.SOL BTL RIGHT EYE SCH ×2 (08:03→20:00)
[2021-01-20] MEDS: CMCS: Estradiol 1 mg TAB (NF) PO SCH (08:05)
[2021-01-20] MEDS: OFLOXACIN 0.3% BOTH EYES SCH ×4 (08:05→20:07)
[2021-01-20] MEDS: diPHENhydraMINE 25 mg TAB PO PRN (19:59)
[2021-01-20] MEDS: Latanoprost 0.005% 2.5 ml BTL RIGHT EYE SCH (20:29)
[2021-01-21] MEDS: diPHENhydraMINE 25 mg TAB PO PRN ×2 (05:13→21:52)
[2021-01-21] MEDS: Heparin 5000 UNITS/ML 1 mL VIAL SUBCUT SCH ×3 (05:21→21:00)
[2021-01-21 07:19] LABS: ABS Eosinophils 0.2 10^3/ul (0-0.6); ABS Lymphocytes 0.9 10^3/ul (1.0-4.8); ABS Monocytes 0.9 10^3/ul (0-0.8); ABS Neutrophils 2.3 10^3/ul (1.5-7.7); Eosinophil % 5.7 %; Hematocrit 31 % (35-47); Hemoglobin 10.7 g/dL (12.0-16.0); Lymphocyte % 19.7 %; Mean Corpuscular HGB Conc 35 g/dL (31-36); Mean Corpuscular Hemoglobin 34 pg (27-31); Mean Corpuscular Volume 97 fL (80-97); Mean Platelet Volume 7.2 fL (7.4-10.4); Platelet Count 303 10^3/uL (150-450); Red Blood Count 3.21 10^6 /uL (3.70-4.87); Red Cell Distribution Width 16 % (10-15); White Blood Count 4.4 10^3/uL (3.5-10.8)
[2021-01-21 07:34] LABS: Albumin 3.6 g/dL (3.2-5.2); Albumin/Globulin Ratio 1.3 (1-3); EGFR African American 53.2 (>60); Globulin 2.8 g/dL (2-4); Total Bilirubin 0.5 mg/dL (0.2-1.0); Total Protein 6.4 g/dL (6.4-8.9)
[2021-01-21 07:57] LABS: Potassium 5.2 mmol/L (3.5-5.0)
[2021-01-21] MEDS: CMCS: Estradiol 1 mg TAB (NF) PO SCH (09:51)
[2021-01-21] MEDS: OFLOXACIN 0.3% BOTH EYES SCH ×4 (09:51→20:58)
[2021-01-21] MEDS: Timolol 0.5% OPTH.SOL BTL RIGHT EYE SCH ×2 (09:51→21:00)
[2021-01-21] MEDS: Latanoprost 0.005% 2.5 ml BTL RIGHT EYE SCH (20:10)
[2021-01-22] MEDS: Heparin 5000 UNITS/ML 1 mL VIAL SUBCUT SCH ×3 (06:42→21:06)
[2021-01-22] MEDS: CMCS: Estradiol 1 mg TAB (NF) PO SCH (08:31)
[2021-01-22] MEDS: Timolol 0.5% OPTH.SOL BTL RIGHT EYE SCH ×2 (08:31→20:00)
[2021-01-22] MEDS: OFLOXACIN 0.3% BOTH EYES SCH ×4 (08:32→21:06)
[2021-01-22] MEDS: Senna TAB 8.6 mg TAB PO PRN (20:00)
[2021-01-22] MEDS: diPHENhydraMINE 25 mg TAB PO PRN (20:04)
[2021-01-22] MEDS: Latanoprost 0.005% 2.5 ml BTL RIGHT EYE SCH (20:07)
[2021-01-22] MEDS: Miconazole VAG.SUPP 100 MG VAGINAL SCH (23:06)
[2021-01-23] MEDS: Heparin 5000 UNITS/ML 1 mL VIAL SUBCUT SCH ×3 (04:54→21:08)
[2021-01-23] MEDS: Timolol 0.5% OPTH.SOL BTL RIGHT EYE SCH ×2 (07:46→20:05)
[2021-01-23] MEDS: CMCS: Estradiol 1 mg TAB (NF) PO SCH (07:48)
[2021-01-23] MEDS: OFLOXACIN 0.3% BOTH EYES SCH ×4 (07:49→21:13)
[2021-01-23] MEDS: Latanoprost 0.005% 2.5 ml BTL RIGHT EYE SCH (20:12)
[2021-01-23] MEDS: Miconazole VAG.SUPP 100 MG VAGINAL SCH (20:13)
[2021-01-23] MEDS: diPHENhydraMINE 25 mg TAB PO PRN (23:58)
[2021-01-24] MEDS: Heparin 5000 UNITS/ML 1 mL VIAL SUBCUT SCH ×3 (05:47→22:44)
[2021-01-24] MEDS: CMCS: Estradiol 1 mg TAB (NF) PO SCH (09:52)
[2021-01-24] MEDS: OFLOXACIN 0.3% BOTH EYES SCH ×4 (09:53→22:37)
[2021-01-24] MEDS: Timolol 0.5% OPTH.SOL BTL RIGHT EYE SCH ×2 (09:54→22:38)
[2021-01-24] MEDS: Miconazole VAG.SUPP 100 MG VAGINAL SCH (22:37)
[2021-01-24] MEDS: Latanoprost 0.005% 2.5 ml BTL RIGHT EYE SCH (22:37)
[2021-01-25] MEDS: Heparin 5000 UNITS/ML 1 mL VIAL SUBCUT SCH ×3 (04:26→21:41)
[2021-01-25] MEDS: Timolol 0.5% OPTH.SOL BTL RIGHT EYE SCH ×2 (10:42→20:51)
[2021-01-25] MEDS: OFLOXACIN 0.3% BOTH EYES SCH ×4 (10:42→20:51)
[2021-01-25] MEDS: CMCS: Estradiol 1 mg TAB (NF) PO SCH (10:44)
[2021-01-25] MEDS: Miconazole VAG.SUPP 100 MG VAGINAL SCH (20:51)
[2021-01-25] MEDS: Latanoprost 0.005% 2.5 ml BTL RIGHT EYE SCH (21:41)
[2021-01-26 01:33] LABS: Urine Appearance Cloudy; Urine Bilirubin Negative (Negative); Urine Blood Negative (Negative); Urine Color Yellow; Urine Glucose Negative (Negative); Urine Ketones Negative (Negative); Urine Nitrite Positive (Negative); Urine Protein Negative (Negative); Urine Urobilinogen Negative (Negative)
[2021-01-26 01:40] LABS: Urine Bacteria 3+ (Absent); Urine Red Blood Cell 2+(6-10/hpf) (Absent); Urine Squamous Epithelial Cell Present (Absent); Urine White Blood Cell 3+(>20/hpf) (Absent)
[2021-01-26] MEDS: Heparin 5000 UNITS/ML 1 mL VIAL SUBCUT SCH ×3 (06:06→22:06)
[2021-01-26] MEDS: CMCS: Estradiol 1 mg TAB (NF) PO SCH (08:43)
[2021-01-26] MEDS: OFLOXACIN 0.3% BOTH EYES SCH ×4 (08:48→20:37)
[2021-01-26] MEDS: Timolol 0.5% OPTH.SOL BTL RIGHT EYE SCH ×2 (08:48→20:30)
[2021-01-26] MEDS: Sulfamethox/Trimethoprim SS TAB 400/80 mg PO SCH (20:32)
[2021-01-26] MEDS: Miconazole VAG.SUPP 100 MG VAGINAL SCH (20:39)
[2021-01-26] MEDS: Latanoprost 0.005% 2.5 ml BTL RIGHT EYE SCH (20:40)
[2021-01-27] MEDS: diPHENhydraMINE 25 mg TAB PO PRN (03:12)
[2021-01-27] MEDS: Heparin 5000 UNITS/ML 1 mL VIAL SUBCUT SCH ×3 (05:08→23:08)
[2021-01-27] MEDS: Sulfamethox/Trimethoprim SS TAB 400/80 mg PO SCH ×2 (08:30→23:06)
[2021-01-27] MEDS: CMCS: Estradiol 1 mg TAB (NF) PO SCH (08:34)
[2021-01-27] MEDS: OFLOXACIN 0.3% BOTH EYES SCH ×4 (08:36→22:09)
[2021-01-27] MEDS: Timolol 0.5% OPTH.SOL BTL RIGHT EYE SCH ×2 (08:46→21:12)
[2021-01-27] MEDS: Latanoprost 0.005% 2.5 ml BTL RIGHT EYE SCH (23:05)
[2021-01-27] MEDS: Miconazole VAG.SUPP 100 MG VAGINAL SCH (23:24)
[2021-01-28] MEDS: diPHENhydraMINE 25 mg TAB PO PRN (02:20)
[2021-01-28] MEDS: Heparin 5000 UNITS/ML 1 mL VIAL SUBCUT SCH ×3 (05:12→22:10)
[2021-01-28 07:17] LABS: ABS Eosinophils 0.2 10^3/ul (0-0.6); ABS Lymphocytes 0.9 10^3/ul (1.0-4.8); ABS Monocytes 0.9 10^3/ul (0-0.8); ABS Neutrophils 1.7 10^3/ul (1.5-7.7); Eosinophil % 5.6 %; Hematocrit 30 % (35-47); Hemoglobin 10.2 g/dL (12.0-16.0); Lymphocyte % 24.1 %; Mean Corpuscular HGB Conc 34 g/dL (31-36); Mean Corpuscular Hemoglobin 33 pg (27-31); Mean Corpuscular Volume 96 fL (80-97); Platelet Count 306 10^3/uL (150-450); Red Blood Count 3.13 10^6 /uL (3.70-4.87); Red Cell Distribution Width 16 % (10-15); White Blood Count 3.8 10^3/uL (3.5-10.8)
[2021-01-28 07:32] LABS: Albumin 3.7 g/dL (3.2-5.2); Albumin/Globulin Ratio 1.4 (1-3); Calcium 9.1 mg/dL (8.6-10.3); EGFR African American 42.5 (>60); EGFR Non-African American 35.2 (>60); Globulin 2.6 g/dL (2-4); Potassium 4.7 mmol/L (3.5-5.0); Total Bilirubin 0.5 mg/dL (0.2-1.0); Total Protein 6.3 g/dL (6.4-8.9)
[2021-01-28] MEDS: OFLOXACIN 0.3% BOTH EYES SCH ×4 (08:55→22:05)
[2021-01-28] MEDS: CMCS: Estradiol 1 mg TAB (NF) PO SCH (08:55)
[2021-01-28] MEDS: Sulfamethox/Trimethoprim SS TAB 400/80 mg PO SCH ×2 (08:55→22:06)
[2021-01-28] MEDS: Timolol 0.5% OPTH.SOL BTL RIGHT EYE SCH ×2 (08:56→20:50)
[2021-01-28] MEDS: Latanoprost 0.005% 2.5 ml BTL RIGHT EYE SCH (22:13)
[2021-01-29] MEDS: Miconazole VAG.SUPP 100 MG VAGINAL SCH (00:22)
[2021-01-29] MEDS: Heparin 5000 UNITS/ML 1 mL VIAL SUBCUT SCH ×3 (05:03→22:12)
[2021-01-29] MEDS: CMCS: Estradiol 1 mg TAB (NF) PO SCH (08:27)
[2021-01-29] MEDS: Sulfamethox/Trimethoprim SS TAB 400/80 mg PO SCH ×2 (08:29→20:54)
[2021-01-29] MEDS: OFLOXACIN 0.3% BOTH EYES SCH ×4 (08:32→20:54)
[2021-01-29] MEDS: Timolol 0.5% OPTH.SOL BTL RIGHT EYE SCH ×2 (08:33→20:58)
[2021-01-29] MEDS: Latanoprost 0.005% 2.5 ml BTL RIGHT EYE SCH (20:58)
[2021-01-30] MEDS: diPHENhydraMINE 25 mg TAB PO PRN (02:52)
[2021-01-30] MEDS: Heparin 5000 UNITS/ML 1 mL VIAL SUBCUT SCH ×3 (06:07→22:04)
[2021-01-30] MEDS: CMCS: Estradiol 1 mg TAB (NF) PO SCH (09:45)
[2021-01-30] MEDS: Sulfamethox/Trimethoprim SS TAB 400/80 mg PO SCH (09:46)
[2021-01-30] MEDS: Timolol 0.5% OPTH.SOL BTL RIGHT EYE SCH ×2 (09:48→22:04)
[2021-01-30] MEDS: OFLOXACIN 0.3% BOTH EYES SCH ×4 (09:48→22:02)
[2021-01-30 13:03] LABS: Calcium 9.5 mg/dL (8.6-10.3); EGFR African American 40.6 (>60); EGFR Non-African American 33.5 (>60)
[2021-01-30 13:21] LABS: Potassium 5.4 mmol/L (3.5-5.0)
[2021-01-30] MEDS ORDERED: Sodium Polystyrene ORAL.SUSP 15 GM/60 ML BTL PO ONE (14:29)
[2021-01-30] MEDS: Latanoprost 0.005% 2.5 ml BTL RIGHT EYE SCH (22:02)
[2021-01-31] MEDS: Heparin 5000 UNITS/ML 1 mL VIAL SUBCUT SCH (05:52)
[2021-01-31 07:19] VITALS: BP 149/46
[2021-01-31] MEDS: Timolol 0.5% OPTH.SOL BTL RIGHT EYE SCH (08:32)
[2021-01-31] MEDS: CMCS: Estradiol 1 mg TAB (NF) PO SCH (08:32)
[2021-01-31] MEDS: OFLOXACIN 0.3% BOTH EYES SCH (08:35)
== END 2021-01-31 11:15 | disposition home health service (06) | DRG 560 ==
LOC: PMRU 09:21
PROVIDERS: ADMIT Physical Medicine & Rehabilitation; ATTEND Physical Medicine & Rehabilitation